=== PATIENT | female | born 1965 | race Caucasian/White ===

== ENCOUNTER 2016-12-24 11:45 | Observation (INO) | payer SELFPAY ==
[~2016-12-24] VITALS: Ht 154.9 cm; Wt 65.0 kg
[2016-12-24] VITALS (8 sets, daily range): BP systolic 121–146; BP diastolic 60–80; PULSE 64–94; RESP 18; TEMP 97.7–98.7; O2SAT 97–99
[~2016-12-24 11:45] MED LIST: 1-ME1LIQ PO; ASPI81 PO; ATOR80TA41 PO; BACT800T5 PO; CARV3.125 PO; CLIN1CAP5 PO; NITR0.4S SL; PLAV75TA PO; TRAM50 PO
[2016-12-24] MEDS ORDERED: NITR0.4S SL (11:57)
[2016-12-24] MEDS ORDERED: LIPI80TA PO (11:57)
[2016-12-24] MEDS ORDERED: ASPI81CH CHEW (11:57)
[2016-12-24] MEDS ORDERED: CARV3.125 PO (11:57)
[2016-12-24] MEDS ORDERED: PLAV75TA29 PO (11:57)
[2016-12-24] MEDS ORDERED: SODIUM CHLORIDE 0.9% FLUSH 10 ML FLUSH IVF PRN (12:00)
[2016-12-24] MEDS ORDERED: ASPIRIN 81 MG CHEW TAB PO ONE (12:00)
[2016-12-24 12:22] LABS: AUTOMATED NEUTROPHIL # 11.4 TH/MM3 (1.8-7.7); BASOPHIL # 0.1 TH/MM3 (0-0.2); BASOPHIL % 0.4 % (0.0-2.0); EOSINOPHIL % 0.3 % (0.0-4.0); HEMATOCRIT 46.6 % (35.0-46.0); HEMO FLAGS DIFF FINAL; LYMPH % 26.1 % (9.0-44.0); LYMPHOCYTE # 4.4 TH/MM3 (1.0-4.8); MEAN CELL VOLUME 89.4 FL (80.0-100.0); MEAN CORPUSCULAR HGB CONC 34.7 % (32.0-36.0); MONO % 5.5 % (0.0-8.0); NEUT % 67.7 % (16.0-70.0); PLATELET COUNT 265 TH/MM3 (150-450); RED BLOOD COUNT 5.21 MIL/MM3 (4.00-5.30); RED CELL DISTRIBUTION WIDTH 17.1 % (11.6-17.2); WHITE BLOOD COUNT 16.8 TH/MM3 (4.0-11.0)
[2016-12-24] MEDS: NITROGLYCERIN 0.4 MG SL 25 TABS/BTL SL SCH ×3 (12:26→12:56)
[2016-12-24 12:34] LABS: PROTHROMBIN TIME - PATIENT 11.4 SEC (9.8-11.6)
[2016-12-24 12:47] LABS: ALKALINE PHOSPHATASE 28 U/L (45-117); CREATINE KINASE 192 U/L (26-192); TOTAL BILIRUBIN ADULT 0.7 MG/DL (0.2-1.0)
--- NOTE | 2016-12-24 12:47 | RADRPT ---
EXAM DATE/TIME: 12/24/2016 12:08 [facility] COMPARISON: No previous studies available for comparison. INDICATIONS : Chest Pain MEDICAL HISTORY : Myocardial infarction. Hypertension Asthma, palpitations SURGICAL HISTORY : Coronary artery stent. ENCOUNTER: Initial ACUITY: 1 day PAIN SCORE: 8/10 LOCATION: Bilateral chest FINDINGS: A single view of the chest demonstrates the lungs to be symmetrically aerated without evidence of mas s, infiltrate or effusion. The cardiomediastinal contours are unremarkable. Osseous structures are intact. CONCLUSION: No acute disease. Satish Kirkpatrick MD on December 24, 2016 at 12:45 Board Certified Radiologist. This report was verified electronically.
[2016-12-24 12:57] LABS: ALT (GPT) 28 U/L (10-53); ANION GAP 15 MEQ/L (5-15); AST (GOT) 21 U/L (15-37); BLOOD UREA NITROGEN 14 MG/DL (7-18); CHLORIDE 105 MEQ/L (98-107); GLOMERULAR FILTRATION RATE 65 ML/MIN (>89); MAGNESIUM 1.9 MG/DL (1.5-2.5); POTASSIUM 3.6 MEQ/L (3.5-5.1); SODIUM (NA) 140 MEQ/L (136-145)
--- NOTE | 2016-12-24 13:13 | PD ---
HPI Chief Complaint: Chest Pain Time Seen by Provider: 11:49 Travel History International Travel<30 days: No Contact w/Intl Traveler<30days: No Traveled to known affect area: No History of Present Illness HPI Patient's 51-year-old female with a history of stents placed the LAD in July of this year presents emergency department for evaluation of chest pain tightness in the middle of her chest without radiation, it was shortness of breath. Patient states been going on for the past 2 hours prior to presentation. She is a smoker high blood pressure high cholesterol but no diabetes. States the pain is been constant ever since onset and fairly severe. PFSH Past Medical History Asthma: Yes Autoimmune Disease: No Bipolar Disorder: Yes Anxiety: Yes Depression: Yes Heart Rhythm Problems: Yes (palpatations) Cancer: Yes (pre-cancer cervical cell abnormality) Cardiac Catheterization: Yes Cardiovascular Problems: Yes (HX OF [place] ) High Cholesterol: Yes Chemotherapy: No Chest Pain: Yes Congestive Heart Failure: No COPD: No Coronary Artery Disease: Yes Diabetes: No Diminished Hearing: No Endocrine: No Gastrointestinal Disorders: Yes GERD: Yes Genitourinary: Yes Hiatal Hernia: Yes Hypertension: Yes Immune Disorder: No Implanted Vascular Access Dvce: No Kidney Stones: No Musculoskeletal: No Neurologic: No Psychiatric: Yes (manic depressive and bipolar disorder) Reproductive: No Respiratory: Yes Radiation Therapy: No Renal Failure: No Sickle Cell Disease: No Sleep Apnea: No Thyroid Disease: No Ulcer: No ?: Not Menopausal: Yes : 4 Para: 4 Tubal Ligation: Yes Past Surgical History Abdominal Surgery: No AICD: No Arteriovenous Shunt: No Cardiac Surgery: No Coronary Stent: Yes Ear Surgery: No Endocrine Surgery: No Eye Surgery: No Genitourinary Surgery: No Gynecologic Surgery: Yes ( ) Hysterectomy: Yes (PARTIAL) Insulin Pump: No Joint Replacement: No Oral Surgery: Yes (extractions) Pacemaker: No Thoracic Surgery: No Other Surgery: Yes (lap & tubal ligation ) Social History Alcohol Use: Yes (TWICE A MONTH) Tobacco Use: Yes (1.5 PPD) Substance Use: Yes (marajuana ON OCC) Allergies-Medications (Allergen,Severity, Reaction): Coded Allergies: Codeine (Verified Allergy, Severe, 12/24/16) Penicillin (Verified Allergy, Severe, 12/24/16) *MDRO Multi-Drug Resistant Organism (Verified Adverse Reaction, Unknown, ) MRSA Buttock Wound 02/2016 Reported Meds & Prescriptions Reported Meds & Active Scripts Active Reported Prozac (Fluoxetine HCl) 40 Mg Cap 40 Mg PO DAILY Lisinopril 20 Mg Tab 20 Mg PO DAILY Nitrostat SL (Nitroglycerin) 0.4 Mg Subl 0.4 Mg SL DIRECTED PRN 1 tablet under the tongue as needed for chest pain. Repeat every 5 minutes for a total of 3 DOSES or call 911 if NO relief. Plavix (Clopidogrel Bisulfate) 75 Mg Tab 75 Mg PO DAILY Coreg (Carvedilol) 3.125 Mg Tab 3.125 Mg PO BID Lipitor (Atorvastatin Calcium) 80 Mg Tab 80 Mg PO HS Aspirin 81 Mg Chew 81 Mg CHEW DAILY Review of Systems Except as stated in HPI: all other systems reviewed are Neg Physical Exam Narrative GENERAL: Well-developed well-nourished appears quite uncomfortable. SKIN: Focused skin assessment warm/dry. HEAD: Atraumatic. Normocephalic. EYES: Pupils equal and round. No scleral icterus. No injection or drainage. ENT: No nasal bleeding or discharge. Mucous membranes pink and moist. NECK: Trachea midline. No JVD. CARDIOVASCULAR: Regular rate and rhythm. No murmur appreciated. 2+ bilaterally equal pulses in all 4 extremity's. RESPIRATORY: No accessory muscle use. Clear to auscultation. Breath sounds equal bilaterally. GASTROINTESTINAL: Abdomen soft, non-tender, nondistended. Hepatic and splenic margins not palpable. MUSCULOSKELETAL: No obvious deformities. No clubbing. No cyanosis. No edema. NEUROLOGICAL: Awake and alert. No obvious cranial nerve deficits. Motor grossly within normal limits. Normal speech. PSYCHIATRIC: Appropriate mood and affect; insight and judgment normal. Data Data Last Documented VS Vital Signs Date Time Temp Pulse Resp B/P Pulse Ox O2 Delivery O2 Flow Rate FiO2 12/24/16 13:00 70 18 136/80 98 Nasal Cannula 2 12/24/16 11:46 98.0 Orders Electrocardiogram (12/24/16 11:52) Ckmb (Isoenzyme) Profile (12/24/16 11:52) Complete Blood Count With Diff (12/24/16 11:52) Comprehensive Metabolic Panel (12/24/16 11:52) D-Dimer (12/24/16 11:52) Magnesium (Mg) (12/24/16 11:52) Prothrombin Time / Inr (Pt) (12/24/16 11:52) Act Partial Throm Time (Ptt) (12/24/16 11:52) Troponin I (12/24/16 11:52) Chest, Single Ap (12/24/16 11:52) Ecg Monitoring (12/24/16 11:52) Iv Access Insert/Monitor (12/24/16 11:52) Oximetry (12/24/16 11:52) Oxygen Administration (12/24/16 11:52) Aspirin Chew (Aspirin Chew) (12/24/16 12:00) Sodium Chloride 0.9% Flush (Ns Flush) (12/24/16 12:00) Nitroglycerin Sl (Nitrostat Sl) (12/24/16 12:00) CKMB (12/24/16 12:00) CKMB% (12/24/16 12:00) Admit Order (Ed Use Only) (12/24/16 ) Labs Laboratory Tests Test 12/24/16 12:00 White Blood Count 16.8 TH/MM3 Red Blood Count 5.21 MIL/MM3 Hemoglobin 16.2 GM/DL Hematocrit 46.6 % Mean Corpuscular Volume 89.4 FL Mean Corpuscular Hemoglobin 31.0 PG Mean Corpuscular Hemoglobin 34.7 % Concent Red Cell Distribution Width 17.1 % Platelet Count 265 TH/MM3 Mean Platelet Volume 8.3 FL Neutrophils (%) (Auto) 67.7 % Lymphocytes (%) (Auto) 26.1 % Monocytes (%) (Auto) 5.5 % Eosinophils (%) (Auto) 0.3 % Basophils (%) (Auto) 0.4 % Neutrophils # (Auto) 11.4 TH/MM3 Lymphocytes # (Auto) 4.4 TH/MM3 Monocytes # (Auto) 0.9 TH/MM3 Eosinophils # (Auto) 0.0 TH/MM3 Basophils # (Auto) 0.1 TH/MM3 CBC Comment DIFF FINAL Differential Comment Prothrombin Time 11.4 SEC Prothromb Time International 1.0 RATIO Ratio Activated Partial 30.0 SEC Thromboplast Time D-Dimer Quantitative (PE/DVT) 0.25 MG/L FEU Sodium Level 140 MEQ/L Potassium Level 3.6 MEQ/L Chloride Level 105 MEQ/L Carbon Dioxide Level 20.0 MEQ/L Anion Gap 15 MEQ/L Blood Urea Nitrogen 14 MG/DL Creatinine 0.92 MG/DL Estimat Glomerular Filtration 65 ML/MIN Rate Random Glucose 135 MG/DL Calcium Level 9.9 MG/DL Magnesium Level 1.9 MG/DL Total Bilirubin 0.7 MG/DL Aspartate Amino Transf 21 U/L (AST/SGOT) Alanine Aminotransferase 28 U/L (ALT/SGPT) Alkaline Phosphatase 28 U/L Total Creatine Kinase 192 U/L Creatine Kinase MB 1.0 NG/ML Troponin I LESS THAN 0.02 NG/ML Total Protein 8.5 GM/DL Albumin 4.1 GM/DL MDM Medical Decision Making Medical Screen Exam Complete: Yes Emergency Medical Condition: Yes Interpretation(s) EKG shows normal sinus rhythm normal axis normal R-wave progression. No concerning ST segment changes. Intervals within normal limits. This is normal EKG. Differential Diagnosis He has, [place], and STEMI, STEMI, PE. Narrative Course Patient was remitted emerged permit, given aspirin and nitroglycerin, the latter relieved her pain significantly. Patient initial troponin negative, chest x-ray negative, d-dimer negative. Discussed the patient chest pain observation and she is agreeable. She is followed by Dr. Cohn. Diagnosis Primary Impression: Chest pain Admitting Information Admitting Physician Requests: Observation Condition: Stable Trevin Perez MD Dec 24, 2016 13:13
[2016-12-24] MEDS ORDERED: NITROGLYCERIN 0.4 MG SL 25 TABS/BTL SL PRN (14:00)
[2016-12-24] MEDS ORDERED: ACETAMINOPHEN 500 MG CPLT PO PRN (14:00)
[2016-12-24] MEDS ORDERED: ONDANSETRON HCL 4 MG/2 ML VIAL IV PRN (14:00)
--- NOTE | 2016-12-24 14:39 | HHI.HP ---
HPI Primary Care Physician Paty Ventura MD Chief Complaint Chest pain History of Present Illness 51-year-old female with history of coronary artery disease including one stent, hypertension, and current smoker presents to the emergency room for further evaluation of chest pain. Onset 11 AM. Location substernal with radiation to left inframammary and left side midback. Characterized as a heavy pressure. Pain in back described as stabbing. Associated symptoms included shortness of breath, nausea, diaphoresis. Hurt to take a deep breath. Also reports her whole body was tingling including fingers, toes, and lips. Precipitating factors situational stress. States this weekend her filed for divorce. Relieving factors she relates to nitroglycerin, stating after 2 doses most of pain subsided. Currently has mild substernal chest pressure. Endorses all day yesterday she experienced indigestion. Symptoms with first AK included acid reflux and right anterior chest pain. Review of Systems General: No fatigue,weakness, fever, chills, recent illness. Other events current situational stress a chief been her general state of health. HEENT: No SCHERER, no vision changes, no dysphasia CV: As stated above. Currently has nonradiating, mild chest pressure substernally. No intermittent leg pain. Reports a physical job with daily activity at which she never develops chest discomfort. Never needed to take nitroglycerin sublingual when necessary RESP: No SOB, cough, wheeze, recent URI, or history of asthma. Current smoker, stating "I smoked a lot more than I normally do." GI: No nausea, vomiting, bowel changes, diarrhea, constipation, pain, distention , melena, or blood in the stool. : No dysuria, urgency, frequency, history of frequent UTIs, or history of kidney stones EXT: No lower leg edema, no paraesthesias. MS: No discomfort or change in ROM. NEURO: No difficulty with balance, LOC, motor/sensory deficits PSYCH: Reports situational stress are green with her . 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 History of bipolar disorder , anxiety and depression. SKIN: No rashes, no concerning lesions Past Family Social History Allergies: Coded Allergies: Codeine (Verified Allergy, Severe, 12/24/16) Penicillin (Verified Allergy, Severe, 12/24/16) *MDRO Multi-Drug Resistant Organism (Verified Adverse Reaction, Unknown, ) MRSA Buttock Wound 02/2016 Past Medical History CAD, hypertension, hyperlipidemia, bipolar disorder Past Surgical History Partial hysterectomy, tubal ligation Reported Medications Active Reported Nitrostat SL (Nitroglycerin) 0.4 Mg Subl 0.4 Mg SL DIRECTED PRN 1 tablet under the tongue as needed for chest pain. Repeat every 5 minutes for a total of 3 DOSES or call 911 if NO relief. Plavix (Clopidogrel Bisulfate) 75 Mg Tab 75 Mg PO DAILY Coreg (Carvedilol) 3.125 Mg Tab 3.125 Mg PO BID Lipitor (Atorvastatin Calcium) 80 Mg Tab 80 Mg PO HS Aspirin 81 Mg Chew 81 Mg CHEW DAILY Prozac daily Active Ordered Medications Current Medications Medications (Trade) Dose Ordered Sig/Jaimie Route Start Time Stop Time Status Last Admin (NS Flush) 2 ml UNSCH PRN IVF 12/24/16 12:00 (NS Flush) 2 ml BID IV FLUSH 12/24/16 21:00 (Tylenol) 500 mg Q4H PRN PO 12/24/16 14:00 (Zofran Inj) 4 mg Q6H PRN IV 12/24/16 14:00 (Nitrostat Sl) 0.4 mg Q5M PRN SL 12/24/16 14:00 (Aspirin) 325 mg DAILY PO 12/25/16 09:00 Family History Father CABG 3 age 55. Mother pacemaker age 70. Brother and sister both have hypertension. Social History Known coronary artery disease, hypertension, and hyperlipidemia. No known diabetes. Smokes 1/2 pack/daily. Denies any alcohol or illegal drug use. Currently . 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 Past cardiac testing 11/05/2014 Cardiac catheterizationstent placed to LAD. Occluded RCA with left to right collaterals. Preserved LV function. 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 Tanya Cohn. No recent stress testing. Follows with button sewer hand every 6 months, next appointment April 2017. Physical Exam Vital Signs Vital Signs Date Time Temp Pulse Resp B/P Pulse Ox O2 Delivery O2 Flow Rate FiO2 12/24/16 12:00 74 18 99 Nasal Cannula 2 12/24/16 11:58 98 Nasal Cannula 2 12/24/16 11:58 98 Nasal Cannula 2 12/24/16 11:46 98.0 94 18 137/76 98 Physical Exam GENERAL: Alert WN, WD, NAD, pleasant, female who appears older than stated age and smells of tobacco. HEAD: NC, AT EYES: Sclera clear, conjunctiva without injection, pupils equal and round ENT: Mucous membranes pink and moist, no nasal discharge or bleeding NECK: Supple, no masses, trachea midline CV: RRR, without murmur, rub, gallop, no JVD, S1-S2 no S3-S4. No carotid bruits. RESP: Diminished lungs throughout bilateral, no crackles, no wheeze, no rhonchi , symmetrical chest rise, nonlabored, able to speak in full sentences ABD: Soft, NT, ND, no masses, positive bowel tones BACK: No scoliosis EXT: Pulses PT and PP +24, no dependent edema MS: Normal tone 4 extremities, nontender, no obvious deformities, full range of motion NEURO: CN II through CN XII grossly intact, motor strength 5/5, gait WNL PSYCH: A+O 3, pleasant affect, appropriate speech, appropriate mood and affect , insight and judgment SKIN: Normal turgor, normal texture, no lesions, no rashes, even hair distribution, tattoo Laboratory Laboratory Tests Test 12/24/16 12:00 White Blood Count 16.8 Red Blood Count 5.21 Hemoglobin 16.2 Hematocrit 46.6 Mean Corpuscular Volume 89.4 Mean Corpuscular Hemoglobin 31.0 Mean Corpuscular Hemoglobin 34.7 Concent Red Cell Distribution Width 17.1 Platelet Count 265 Mean Platelet Volume 8.3 Neutrophils (%) (Auto) 67.7 Lymphocytes (%) (Auto) 26.1 Monocytes (%) (Auto) 5.5 Eosinophils (%) (Auto) 0.3 Basophils (%) (Auto) 0.4 Neutrophils # (Auto) 11.4 Lymphocytes # (Auto) 4.4 Monocytes # (Auto) 0.9 Eosinophils # (Auto) 0.0 Basophils # (Auto) 0.1 CBC Comment DIFF FINAL Differential Comment Prothrombin Time 11.4 Prothromb Time International 1.0 Ratio Activated Partial 30.0 Thromboplast Time D-Dimer Quantitative (PE/DVT) 0.25 Sodium Level 140 Potassium Level 3.6 Chloride Level 105 Carbon Dioxide Level 20.0 Anion Gap 15 Blood Urea Nitrogen 14 Creatinine 0.92 Estimat Glomerular Filtration 65 Rate Random Glucose 135 Calcium Level 9.9 Magnesium Level 1.9 Total Bilirubin 0.7 Aspartate Amino Transf 21 (AST/SGOT) Alanine Aminotransferase 28 (ALT/SGPT) Alkaline Phosphatase 28 Total Creatine Kinase 192 Creatine Kinase MB 1.0 Troponin I LESS THAN 0.02 Total Protein 8.5 Albumin 4.1 Result Diagram: 12/24/16 1200 12/24/16 1200 Imaging Last Impressions Chest X-Ray 12/24/16 1152 Signed Impressions: Service Date/Time: Sunday, December 24, 2016 12:08 - CONCLUSION: No acute disease. Satish Kirkpatrick MD Course EKG First EKG normal sinus rhythm, normal axis, mild ST depression [id number] Second EKG normal sinus rhythm, normal axis, no st t segment changes. Assessment and Plan Assessment and Plan #1 Chest painadmitted to chest pain center. Ruled out with 3 sets of EKGs, cardiac enzymes, and monitored overnight. Seen and evaluated by Dr. Kostas Rodriguez. If ruled out, plan for lexiscan in am. Patient is agreeable to plan of care. Will notify Dr. Cohn in morning of patients arrival to chest pain unit. #2 History of CADcontinue Coreg, atorvastatin, Plavix, aspirin #3 Depressioncontinue Prozac once updated on electronic medical record, follow- up with PCP and discuss with PCP current increase stress. #4 Tobacco usestrongly encouraged and stressed the importance of tobacco sensation. Discussed and counseled patient to quit smoking. #5 Polycythemia-most likely related to her smoking, encouraged tobacco sensation , follow up with PCP, d-dimer unremarkable. #6 Hypertension-continue to monitor, restart bp medication once medication list updated. Eve Garcia Dec 24, 2016 14:39
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
[2016-12-24 16:16] LABS: CREATINE KINASE 156 U/L (26-192)
[2016-12-24 16:29] LABS: CKMB 0.7 NG/ML (0.5-3.6)
[2016-12-24] MEDS ORDERED: LISI-515 PO (16:44)
[2016-12-24] MEDS ORDERED: PROZ40CA PO (16:45)
[2016-12-24] MEDS: NITROGLYCERIN 2% OINT 1 GM PACKET TOPICAL SCH ×2 (16:46→17:38)
[2016-12-24 18:58] LABS: CREATINE KINASE 154 U/L (26-192)
[2016-12-24 19:10] LABS: CKMB 0.9 NG/ML (0.5-3.6)
[2016-12-24] MEDS ORDERED: ATORVASTATIN 80 MG TAB PO SCH (21:00)
[2016-12-24] MEDS: CARVEDILOL 3.125 MG TAB PO SCH (21:48)
[2016-12-24] MEDS: SODIUM CHLORIDE 0.9% FLUSH 10 ML FLUSH IV FLUSH SCH (21:48)
[2016-12-25] VITALS (7 sets, daily range): BP systolic 111–127; BP diastolic 58–71; PULSE 57–77; RESP 15–17; TEMP 97.3–98.6; O2SAT 96–98
[2016-12-25] MEDS: NITROGLYCERIN 2% OINT 1 GM PACKET TOPICAL SCH ×2 (05:34)
[2016-12-25] MEDS ORDERED: FLUoxetine HCL 20 MG CAP PO SCH (09:00)
[2016-12-25] MEDS ORDERED: ASPIRIN 325 MG TAB PO SCH (09:00)
[2016-12-25] MEDS ORDERED: CLOPIDOGREL 75 MG TAB PO SCH (09:00)
[2016-12-25] MEDS ORDERED: LISINOPRIL 20 MG TAB PO SCH (09:00)
[2016-12-25] MEDS ORDERED: REGADENOSON INJ 0.4 MG/5 ML SYR ONE (09:17)
[2016-12-25] MEDS: SODIUM CHLORIDE 0.9% FLUSH 10 ML FLUSH IV FLUSH SCH (10:17)
[2016-12-25] MEDS: CARVEDILOL 3.125 MG TAB PO SCH (10:18)
--- NOTE | 2016-12-25 10:34 | RADRPT ---
EXAM DATE/TIME: 12/25/2016 08:44 [facility] COMPARISON: No previous studies available for comparison. INDICATIONS : Substernal chest pain radiating to back with dyspnea, diaphoresis and nausea. Angina. Coronary artery disease. DOSE: 27.2 mCi Tc99m Myoview at stress. 8.5 mCi Tc99m Myoview at rest. 0.4 mg Lexiscan STRESS SYMPTOMS: Dyspnea, vomiting, and hot EJECTION FRACTION: 69% MEDICAL HISTORY : Hypertension. Bipolar disorder. SURGICAL HISTORY : Tubal ligation. Hysterectomy. Coronary artery stent. ENCOUNTER: Initial ACUITY: 2 days PAIN SCALE: 7/10 LOCATION: Substernal chest TECHNIQUE: The patient underwent pharmacologic stress with infusion of prescribed dose. Continuous ECG tracing was monitored during stress. Gated SPECT imaging was performed after stress and conventional SPECT i maging was performed at rest. The examination was performed on a SPECT/CT scanner, both attenuation and non-corrected datasets were reviewed. FINDINGS: DISTRIBUTION: The maximum perfused segment at stress is in the inferior wall. PERFUSION STUDY: The pattern of perfusion at stress is within normal limits. GATED STUDY: There is intact wall motion and thickening without hypokinetic or dyskinetic segments. CONCLUSION: 1. No focal reversible perfusion defect. 2. No focal wall motion abnormality with EF of 69%. RISK CATEGORY: Low (<1% Annual Mortality Rate) Tony Stephenson MD on December 25, 2016 at 10:28 Board Certified Radiologist. This report was verified electronically.
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
--- NOTE | 2016-12-25 14:23 | EKG ---
Date Performed: 12/24/2016 Time Performed: 18:24:34 PTAGE: 51 years EKG: SINUS BRADYCARDIA WITH SINUS ARRHYTHMIA BORDERLINE ECG PREVIOUS TRACING : 12/24/2016 15.16 Since previous tracing, no significant change noted DOCTOR: Donta Coleman Interpretating Date/Time 12/25/2016 14:22:12
--- NOTE | 2016-12-25 14:24 | EKG ---
Date Performed: 12/24/2016 Time Performed: 15:16:05 PTAGE: 51 years EKG: Sinus rhythm NORMAL ECG PREVIOUS TRACING : 12/24/2016 11.46 Since previous tracing, no significant change noted DOCTOR: Donta Coleman Interpretating Date/Time 12/25/2016 14:22:22
--- NOTE | 2016-12-25 14:24 | EKG ---
Date Performed: 12/24/2016 Time Performed: 11:46:59 PTAGE: 51 years EKG: Sinus rhythm MODERATE ST DEPRESSION ABNORMAL ECG PREVIOUS TRACING : 11/05/2014 05.00 Since previous tracing,ST changes are more prominent DOCTOR: Donta Coleman Interpretating Date/Time 12/25/2016 14:22:51
--- NOTE | 2016-12-25 14:25 | TR ---
Date Performed: 12/25/2016 Time Performed: 09:21:10 DOCTOR: Donta Coleman DRUG LIST: CLINICAL HISTORY: REASON FOR TEST: Angina REASON FOR ENDING: OBSERVATION: CONCLUSION: Lexiscan stress test was performed under standard four minute protocol. Radionuclid e was injected one minute prior to ending the test. No electrocardiographic abormalities were present to suggest ischemia. Nuclear imaging and interpretation are pending. COMMENTS:
== END 2016-12-25 11:59 | disposition home or self-care (01) ==
LOC: NEPE 11:45 → NEDA 13:18 → NEPFCDU 15:50
PROVIDERS: ADMIT Internal Medicine Interventional Cardiology; ATTEND Internal Medicine Interventional Cardiology
DX: R07.89 Other chest pain (principal); R00.1 Bradycardia, unspecified; I49.8 Other specified cardiac arrhythmias; R94.31 Abnormal electrocardiogram [ECG] [EKG]; R11.2 Nausea with vomiting, unspecified; R61 Generalized hyperhidrosis; R06.00 Dyspnea, unspecified; D75.1 Secondary polycythemia; M54.9 Dorsalgia, unspecified; R20.2 Paresthesia of skin; K30 Functional dyspepsia; I25.119 Atherosclerotic heart disease of native coronary artery with unspecified angina pectoris; I10 Essential (primary) hypertension; E78.5 Hyperlipidemia, unspecified; E78.00 Pure hypercholesterolemia, unspecified; I25.2 Old myocardial infarction; J45.909 Unspecified asthma, uncomplicated; K21.9 Gastro-esophageal reflux disease without esophagitis; F41.9 Anxiety disorder, unspecified; F31.9 Bipolar disorder, unspecified; Z95.5 Presence of coronary angioplasty implant and graft; F17.200 Nicotine dependence, unspecified, uncomplicated; Z79.899 Other long term (current) drug therapy; Z79.82 Long term (current) use of aspirin; Z79.02 Long term (current) use of antithrombotics/antiplatelets
CPT/HCPCS: 71010; 78452; 80053; 82550; 82552; 83735; 84484; 85025; 85379; 85610; 85730; 93005; 93017; 99285; A9502; G0378; J2785

== ENCOUNTER 2018-06-13 11:50 | Inpatient (IN) ==
[2018-06-13] MEDS ORDERED: Propofol Inj 500 MG/50 ML Vial ONE ×2 (11:53→11:59)
[2018-06-13] MEDS: Propofol 1000 mg/100 ml Inj 1,000 MG/100 ML BOTTLE IV.CONT PRN ×3 (12:20→22:35)
[2018-06-13 12:33] LABS: Baso # (Auto) 0.1 th/mm3 (0.0-0.2); Baso % (Auto) 0.6 % (0.0-2.0); Eos # (Auto) 0.1 th/mm3 (0.0-0.4); Hematocrit 45.5 % (35.0-46.0); Hemoglobin 15.7 gm/dL (11.6-15.3); Lymph # (Auto) 5.7 th/mm3 (1.0-4.8); Lymph % (Auto) 42.3 % (9.0-44.0); Mean Corpuscular HGB Conc 34.6 % (32.0-36.0); Mean Corpuscular Hemoglobin 32.9 pg (27.0-34.0); Mean Corpuscular Volume 95.3 fL (80.0-100.0); Mean Platelet Volume 7.7 fL (7.0-11.0); Mono # (Auto) 0.9 th/mm3 (0.0-0.9); Mono % (Auto) 6.7 % (0.0-8.0); Neut # (Auto) 6.6 th/mm3 (1.8-7.7); Neut % (Auto) 49.4 % (16.0-70.0); Platelet Count 280 th/mm3 (150-450); Red Blood Count 4.77 mil/mm3 (4.00-5.30); White Blood Count 13.4 th/mm3 (4.0-11.0)
[2018-06-13 12:42] LABS: ABG Base Excess -3.7 mmol/L (-2-2); ABG PCO2 79 mmHg (38-42); ABG PO2 187 mmHg (61-120)
[2018-06-13 12:42] LABS: Bilirubin,Urine Negative (Negative); Clarity,Urine Cloudy (Clear); Color,Urine Yellow (Yellw/Straw); Glucose,Urine (UA) 50 mg/dL (Negative); Leukocyte Esterase,Urine Negative (Negative); Nitrite,Urine Negative (Negative); Specific Gravity,Urine 1.014 (1.002-1.035); Squamous Epithelial Cell,Urine 2 /hpf (0-5)
[2018-06-13 12:59] LABS: Amphetamine Screen,Urine Neg (Neg); Barbiturate Screen,Urine Neg (Neg); Cannabinoid Screen,Urine Pos (Neg); Cocaine Screen,Urine Neg (Neg)
--- NOTE | 2018-06-13 13:01 | XR ---
EXAM DATE: 06/13/2018 12:58 PM EST AGE/SEX: 52 years / Female INDICATIONS: Respiratory failure. CLINICAL DATA: This is the patient's initial encounter. Patient reports that signs and symptoms have been present for 1 day and indicates a pain score of Nonresponsive. MEDICAL/SURGICAL HISTORY: Non-responsive. Non-responsive. [place] [facility] [place]. . FINDINGS: ETT approximately 2.5 cm above the shanna. NGT in the stomach. Mild interstitial prominence without s ignificant new focal pleural or parenchymal opacities. Cardiomediastinal contours are within normal l imits. Bony thorax is intact. CONCLUSION: 1. ETT and NGT in good position. 2. Mild interstitial edema. Electronically signed by: Tony Stephenson MD Board Certified Radiologist 06/13/2018 12:59 PM EST
[2018-06-13 13:03] LABS: Alanine Aminotransferase 39 U/L (10-53); Alkaline Phosphatase 31 U/L (45-117); Total Protein 7.2 g/dL (6.4-8.2)
[2018-06-13 13:04] LABS: Albumin 3.3 g/dL (3.4-5.0); Anion Gap 9 meq/L (5-15); Aspartate Aminotransferase 29 U/L (15-37); Blood Urea Nitrogen 10 mg/dL (7-18); Carbon Dioxide 23.5 meq/L (21.0-32.0); Chloride 109 meq/L (98-107); Glomerular Filtration Rate 65 mL/min (>89); Glucose,Random 126 mg/dL (74-106); Magnesium 2.1 mg/dL (1.5-2.5); Potassium 3.9 meq/L (3.5-5.1); Sodium 141 meq/L (136-145)
[2018-06-13 13:07] LABS: Eosinophils 1 % (0-4); Lymphocytes 41 % (9-44); Monocytes 4 % (0-8); Platelet Estimate Normal (Normal); Platelet Morphology Normal (Normal)
[2018-06-13 13:08] LABS: Opiate Screen,Urine Neg (Neg)
[2018-06-13 13:09] LABS: Alcohol 79 mg/dL (0-5)
--- NOTE | 2018-06-13 13:10 | ED ---
HPI General Chief complaint: Overdose Stated complaint: Emergent/OD Time Seen by Provider: 06/13/18 12:00 Source: EMS and RN notes reviewed Mode of arrival: EMS Limitations: altered mental status History of Present Illness HPI narrative: 52yF brought in by EMS for suspected overdose. The patient was reportedly found unresponsive by family, somnolent and not protecting airway, required intubation by EMS prior to arrival. She had copious emesis noted in her airway during intubation. EMS found bottles of prozac, omeprazole, carvedilol, Joseph Ryan, and marijuana with paraphernalia next to the patient. It is unclear if this was an intentional overdose attempt. The patient arrived intubated and there are no friends or family members present to provide collateral information. Related Data Home Medications Medication Instructions Recorded Confirmed Unable to Obtain Home Meds 06/13/18 06/13/18 Allergies Allergy/AdvReac Type Severity Reaction Status Date / Time codeine Allergy Severe Unverified 01/24/17 00:55 penicillin G Allergy Severe Unverified 01/24/17 00:55 *MDRO Multi-Drug Resistant AdvReac Unknown Uncoded 12/24/16 11:52 Organism Review of Systems ROS Unobtainable ROS Unobtainable: unobtainable due to endotracheal tube PMFSH Medical History Medical History Bipolar disorder (Acute) Coronary artery disease (Acute) Depression (Acute) Essential hypertension (Acute) H/O gastroesophageal reflux (GERD) (Acute) Hyperlipidemia (Acute) Surgical History Surgical History History of partial hysterectomy (Acute) History of tubal ligation (Acute) Family History Family History Father Family history of CABG Mother Family history of pacemaker Social History Social History Smoking Status: Unknown if ever smoked How Often Do You Have a Drink Containing Alcohol: Unable to Obtain Recent Travel in [place] within the Last 8 Weeks: No Recent Out of Country Travel within the Last 8 Weeks: No Immunization History Tetanus Immunization: Unable to Assess Exam Const General: ill appearing Other: Intubated, copious emesis noted on/ around patient HENMT Other: No obvious head or facial trauma Eyes Other: Pupils 2 mm and sluggishly reactive bilaterally Mild chemosis Neck Other: Trachea midline Chest Chest: normal inspection of the chest Resp Other: Copious thick mercado secretions noted initially from ETT, large amount of particulate matter suctioned from nares and oropharynx 7-5 ETT secured at 24 cm at the teeth Coarse bilateral breath sounds present Cardio Rate: tachycardic Rhythm: regular rhythm GI Inspection: non-distended Palpation: soft Skin General: no rashes or lesions noted Neuro Other: GCS 6T ([id number]), RASS 0 on arrival, now -1 on sedation Course Initial Documented Vital Signs Pulse Rate 99 H 06/13/18 11:52 Respiratory Rate 17 06/13/18 11:52 Blood Pressure 221/105 H 06/13/18 11:52 Pulse Oximetry 97 06/13/18 11:52 Last Documented Vital Signs Temperature 98.6 F 06/13/18 12:03 Pulse Rate 108 H 06/13/18 13:46 Respiratory Rate 18 06/13/18 13:46 Blood Pressure 170/102 H 06/13/18 13:46 Pulse Oximetry 100 06/13/18 13:47 Critical Care Time Critical Care Time: Yes Total Critical Care Time: 45 Attestation: Counseling/ Coordination of Care: This patient is critically ill with impairment of one or more vital organ systems with a high probability of imminent or life-threatening deterioration. High-complexity medical decision making was required to support vital organ function and/ or prevent deterioration in the patient's condition. Total critical care time spent is 45 minutes giving full attention to this patient. This includes examining the patient, gathering history from someone other than the patient (i.e. EMS), discussing the patient's care with other providers, managing the patient's blood pressure and ventilator settings, ordering and interpreting radiologic studies, ordering and interpreting laboratory values, managing the patient's sedation requirements, re-evaluation at frequent intervals, and documentation. Amount of time is separate from teaching, counseling the patient and/or family, and exclusive of procedures. Medical Decision Making MDM Narrative Medical decision making narrative: Assessment: 52yF presenting with suspected overdose, acute toxic encephalopathy, aspiration , acute hypoxic respiratory failure requiring mechanical ventilation Plan: ETT placement confirmed on arrival with capnometry and bilateral breath sounds ABG on arrival 7.12/78/187/25/-3.7, rate increased to 18 CXR shows ETT in adequate position, interstitial edema (L>R) concerning for acute aspiration pneumonitis Emergent bronchoscopy performed on arrival for pulmonary toilet in the setting of massive aspiration event, no significant particulate matter noted but moderate amt of thin secretions were found in RUL Sedation/ mechanical ventilation Labs, including ASA/ APAP/ EtOH/ urine drug UA, UCG CT Patient had a Dyson Act filed by police for suspected intentional overdose Patient requires ICU level of care-- case discussed with Dr. Cotton Medical Screen Exam Complete: Yes Emergency Medical Condition: Yes Differential Diagnosis Differential Diagnosis: Differential diagnosis includes, but is not limited to: overdose, intoxication/ withdrawal, aspiration, pneumonia, ICH Lab Data Lab results reviewed: Yes I reviewed the patient's lab results. Result diagrams: 06/13/18 12:00 06/13/18 12:00 POC Results POC Urine Results Negative Lab Results 06/13/18 06/13/18 06/13/18 Range/Units 12:00 12:00 12:00 WBC 13.4 H (4.0-11.0) th/mm3 RBC 4.77 (4.00-5.30) mil/mm3 Hgb 15.7 H (11.6-15.3) gm/dL Hct 45.5 (35.0-46.0) % MCV 95.3 (80.0-100.0) fL MCH 32.9 (27.0-34.0) pg MCHC 34.6 (32.0-36.0) % RDW 14.0 (11.6-17.2) % Plt Count 280 (150-450) th/mm3 MPV 7.7 (7.0-11.0) fL Prelim Diff (Auto) Slide review pending Neut % (Auto) 49.4 (16.0-70.0) % Lymph % (Auto) 42.3 (9.0-44.0) % Wayne % (Auto) 6.7 (0.0-8.0) % Eos % (Auto) 1.0 (0.0-4.0) % Baso % (Auto) 0.6 (0.0-2.0) % Neut # (Auto) 6.6 (1.8-7.7) th/mm3 Lymph # (Auto) 5.7 H (1.0-4.8) th/mm3 Wayne # (Auto) 0.9 (0.0-0.9) th/mm3 Eos # (Auto) 0.1 (0.0-0.4) th/mm3 Baso # (Auto) 0.1 (0.0-0.2) th/mm3 WBC Differential Manual diff final Seg Neuts % (Manual) 54 (16-70) % Lymphocytes % (Manual) 41 (9-44) % Monocytes % (Manual) 4 (0-8) % Eosinophils % (Manual) 1 (0-4) % Abs Neuts (Manual) 7.2 (1.8-7.7) th/mm3 Differential Comment . Platelet Estimate Normal (Normal) Platelet Morphology Normal (Normal) Puncture Site Patient Temperature O2 Saturation (90-100) % ABG pH (7.380-7.420) ABG pCO2 (38-42) mmHg ABG pO2 (61-120) mmHg ABG HCO3 (22-26) mmol/L ABG O2 Content (12.0-20.0) Vol % ABG Base Excess (-2-2) mmol/L ABG Methemoglobin (0-2) % Jaime Test Hemoglobin (12.0-16.0) G/DL Carboxyhemoglobin (0-4) % O2 Delivery Device Vent Setting Inspired O2 % Critical Value Sodium 141 (136-145) meq/L Potassium 3.9 (3.5-5.1) meq/L Chloride 109 H (98-107) meq/L Carbon Dioxide 23.5 (21.0-32.0) meq/L Anion Gap 9 (5-15) meq/L BUN 10 (7-18) mg/dL Creatinine 0.91 (0.50-1.00) mg/dL Estimated GFR 65 L (>89) mL/min Random Glucose 126 H (74-106) mg/dL Calcium 8.0 L (8.5-10.1) mg/dL Phosphorus (2.5-4.9) mg/dL Magnesium 2.1 (1.5-2.5) mg/dL Total Bilirubin 0.3 (0.2-1.0) mg/dL AST 29 (15-37) U/L ALT 39 (10-53) U/L Alkaline Phosphatase 31 L (45-117) U/L Ammonia 29 (11-32) mcmol/L Troponin I Less than 0.02 L (0.02-0.05) ng/mL Total Protein 7.2 (6.4-8.2) g/dL Albumin 3.3 L (3.4-5.0) g/dL TSH 1.630 (0.358-3.740) uIU/mL Urine Color (Yellw/Straw) Urine Clarity (Clear) Urine pH (5.0-8.5) Ur Specific [place] (1.002-1.035) Urine Protein (Neg-Trace) mg/dL Urine Glucose (UA) (Negative) mg/dL Urine Ketones (Negative) mg/dL Urine Occult Blood (Negative) Urine Nitrate (Negative) Urine Bilirubin (Negative) Urine Urobilinogen (Less than 2) mg/dL Ur Leukocyte Esterase (Negative) Urine RBC (0-3) /hpf Urine WBC (0-5) /hpf Ur Squamous Epith Cells (0-5) /hpf Micro UA Comment Ur Microscopic Review Urine Culture Comments Salicylates (2.8-20.0) mg/dL Urine Opiates Screen (Neg) Acetaminophen Less than 2.0 L (10.0-30.0) mcg/mL Ur Barbiturates Screen (Neg) Ur Amphetamines Screen (Neg) U Benzodiazepines Scrn (Neg) Urine Cocaine Screen (Neg) U Cannabinoids Screen (Neg) Serum Alcohol 79 H (0-5) mg/dL 06/13/18 06/13/18 06/13/18 Range/Units 12:00 12:00 12:05 WBC (4.0-11.0) th/mm3 RBC (4.00-5.30) mil/mm3 Hgb (11.6-15.3) gm/dL Hct (35.0-46.0) % MCV (80.0-100.0) fL MCH (27.0-34.0) pg MCHC (32.0-36.0) % RDW (11.6-17.2) % Plt Count (150-450) th/mm3 MPV (7.0-11.0) fL Prelim Diff (Auto) Neut % (Auto) (16.0-70.0) % Lymph % (Auto) (9.0-44.0) % Wayne % (Auto) (0.0-8.0) % Eos % (Auto) (0.0-4.0) % Baso % (Auto) (0.0-2.0) % Neut # (Auto) (1.8-7.7) th/mm3 Lymph # (Auto) (1.0-4.8) th/mm3 Wayne # (Auto) (0.0-0.9) th/mm3 Eos # (Auto) (0.0-0.4) th/mm3 Baso # (Auto) (0.0-0.2) th/mm3 WBC Differential Seg Neuts % (Manual) (16-70) % Lymphocytes % (Manual) (9-44) % Monocytes % (Manual) (0-8) % Eosinophils % (Manual) (0-4) % Abs Neuts (Manual) (1.8-7.7) th/mm3 Differential Comment Platelet Estimate (Normal) Platelet Morphology (Normal) Puncture Site Patient Temperature O2 Saturation (90-100) % ABG pH (7.380-7.420) ABG pCO2 (38-42) mmHg ABG pO2 (61-120) mmHg ABG HCO3 (22-26) mmol/L ABG O2 Content (12.0-20.0) Vol % ABG Base Excess (-2-2) mmol/L ABG Methemoglobin (0-2) % Jaime Test Hemoglobin (12.0-16.0) G/DL Carboxyhemoglobin (0-4) % O2 Delivery Device Vent Setting Inspired O2 % Critical Value Sodium (136-145) meq/L Potassium (3.5-5.1) meq/L Chloride (98-107) meq/L Carbon Dioxide (21.0-32.0) meq/L Anion Gap (5-15) meq/L BUN (7-18) mg/dL Creatinine (0.50-1.00) mg/dL Estimated GFR (>89) mL/min Random Glucose (74-106) mg/dL Calcium (8.5-10.1) mg/dL Phosphorus 4.3 (2.5-4.9) mg/dL Magnesium (1.5-2.5) mg/dL Total Bilirubin (0.2-1.0) mg/dL AST (15-37) U/L ALT (10-53) U/L Alkaline Phosphatase (45-117) U/L Ammonia (11-32) mcmol/L Troponin I (0.02-0.05) ng/mL Total Protein (6.4-8.2) g/dL Albumin (3.4-5.0) g/dL TSH (0.358-3.740) uIU/mL Urine Color (Yellw/Straw) Urine Clarity (Clear) Urine pH (5.0-8.5) Ur Specific [place] (1.002-1.035) Urine Protein (Neg-Trace) mg/dL Urine Glucose (UA) (Negative) mg/dL Urine Ketones (Negative) mg/dL Urine Occult Blood (Negative) Urine Nitrate (Negative) Urine Bilirubin (Negative) Urine Urobilinogen (Less than 2) mg/dL Ur Leukocyte Esterase (Negative) Urine RBC (0-3) /hpf Urine WBC (0-5) /hpf Ur Squamous Epith Cells (0-5) /hpf Micro UA Comment Ur Microscopic Review Urine Culture Comments Salicylates 4.6 (2.8-20.0) mg/dL Urine Opiates Screen Neg (Neg) Acetaminophen (10.0-30.0) mcg/mL Ur Barbiturates Screen Neg (Neg) Ur Amphetamines Screen Neg (Neg) U Benzodiazepines Scrn Pos H (Neg) Urine Cocaine Screen Neg (Neg) U Cannabinoids Screen Pos H (Neg) Serum Alcohol (0-5) mg/dL 06/13/18 06/13/18 Range/Units 12:05 12:35 WBC (4.0-11.0) th/mm3 RBC (4.00-5.30) mil/mm3 Hgb (11.6-15.3) gm/dL Hct (35.0-46.0) % MCV (80.0-100.0) fL MCH (27.0-34.0) pg MCHC (32.0-36.0) % RDW (11.6-17.2) % Plt Count (150-450) th/mm3 MPV (7.0-11.0) fL Prelim Diff (Auto) Neut % (Auto) (16.0-70.0) % Lymph % (Auto) (9.0-44.0) % Wayne % (Auto) (0.0-8.0) % Eos % (Auto) (0.0-4.0) % Baso % (Auto) (0.0-2.0) % Neut # (Auto) (1.8-7.7) th/mm3 Lymph # (Auto) (1.0-4.8) th/mm3 Wayne # (Auto) (0.0-0.9) th/mm3 Eos # (Auto) (0.0-0.4) th/mm3 Baso # (Auto) (0.0-0.2) th/mm3 WBC Differential Seg Neuts % (Manual) (16-70) % Lymphocytes % (Manual) (9-44) % Monocytes % (Manual) (0-8) % Eosinophils % (Manual) (0-4) % Abs Neuts (Manual) (1.8-7.7) th/mm3 Differential Comment Platelet Estimate (Normal) Platelet Morphology (Normal) Puncture Site Right radial Patient Temperature 98.6 O2 Saturation 95 (90-100) % ABG pH 7.12 L* (7.380-7.420) ABG pCO2 79 H* (38-42) mmHg ABG pO2 187 H (61-120) mmHg ABG HCO3 25 (22-26) mmol/L ABG O2 Content 22.7 H (12.0-20.0) Vol % ABG Base Excess -3.7 L (-2-2) mmol/L ABG Methemoglobin 0.9 (0-2) % Jaime Test Present Hemoglobin 16.9 H (12.0-16.0) G/DL Carboxyhemoglobin 3.1 (0-4) % O2 Delivery Device Vent Vent Setting Prvc/16/450/10/70 Inspired O2 70 % Critical Value Yes Sodium (136-145) meq/L Potassium (3.5-5.1) meq/L Chloride (98-107) meq/L Carbon Dioxide (21.0-32.0) meq/L Anion Gap (5-15) meq/L BUN (7-18) mg/dL Creatinine (0.50-1.00) mg/dL Estimated GFR (>89) mL/min Random Glucose (74-106) mg/dL Calcium (8.5-10.1) mg/dL Phosphorus (2.5-4.9) mg/dL Magnesium (1.5-2.5) mg/dL Total Bilirubin (0.2-1.0) mg/dL AST (15-37) U/L ALT (10-53) U/L Alkaline Phosphatase (45-117) U/L Ammonia (11-32) mcmol/L Troponin I (0.02-0.05) ng/mL Total Protein (6.4-8.2) g/dL Albumin (3.4-5.0) g/dL TSH (0.358-3.740) uIU/mL Urine Color Yellow (Yellw/Straw) Urine Clarity Cloudy H (Clear) Urine pH 5.0 (5.0-8.5) Ur Specific [place] 1.014 (1.002-1.035) Urine Protein 30 H (Neg-Trace) mg/dL Urine Glucose (UA) 50 (Negative) mg/dL Urine Ketones Negative (Negative) mg/dL Urine Occult Blood Negative (Negative) Urine Nitrate Negative (Negative) Urine Bilirubin Negative (Negative) Urine Urobilinogen Less than 2 (Less than 2) mg/dL Ur Leukocyte Esterase Negative (Negative) Urine RBC 3 (0-3) /hpf Urine WBC 2 (0-5) /hpf Ur Squamous Epith Cells 2 (0-5) /hpf Micro UA Comment Culture not ind Ur Microscopic Review Not Reportable Urine Culture Comments Culture not ind Salicylates (2.8-20.0) mg/dL Urine Opiates Screen (Neg) Acetaminophen (10.0-30.0) mcg/mL Ur Barbiturates Screen (Neg) Ur Amphetamines Screen (Neg) U Benzodiazepines Scrn (Neg) Urine Cocaine Screen (Neg) U Cannabinoids Screen (Neg) Serum Alcohol (0-5) mg/dL Imaging Data Radiologist's impression: Chest X-Ray 06/13/18 12:00 CONCLUSION: 1. ETT and NGT in good position. 2. Mild interstitial edema. ECG Data Attestation: I personally reviewed and interpreted this ECG as follows: Interpretation: Rate: 95 BPM Rhythm: Sinus [place]: Normal Intervals: Normal intervals, no blocks, QTc 400 ms Q waves: V2 T waves: Inverted in V2 ST segments: No elevations or depressions Impression: Non-specific EKG, Q wave in V2 is new but otherwise no significant changes as compared to EKG from 12/24/2016. Discharge Plan Discharge Disposition Patient Disposition: ED Admit(ED Internal Use Only) Discharge Condition Condition: Serious Discharge Order Discharge Orders: ED Use Only Admit Order (Routine); Ordered 06/13/18 Ordered By: Eve Delatorre Discharge Details Diagnosis: Drug overdose, Acute respiratory failure with hypoxia, Aspiration pneumonitis, Encephalopathy, toxic Physicians Team ED Provider: Eve Delatorre Primary Care Provider: UNKNOWN, Attending Provider: Gustavo Cotton Status ED Status: Admitted Patient
[2018-06-13] MEDS ORDERED: Acetaminophen 325 MG Tablet PO PRN (13:21)
[2018-06-13] MEDS ORDERED: Bisacodyl 10 MG Supp RECTAL PRN (13:21)
[2018-06-13] MEDS ORDERED: Magnesium Sulfate Inj 4 GM in Sodium Chlor 0.9% Inj 92 ML IV.SIG PRN (13:25)
[2018-06-13] MEDS ORDERED: Magnesium Sulfate Inj 2 GM in Sodium Chlor 0.9% Inj 96 ML IV.SIG PRN (13:25)
[2018-06-13] MEDS ORDERED: Potassium Chlor 20 mEq Premix 20 MEQ/100 ML PIGGYBACK IV.SIG PRN (13:25)
[2018-06-13] MEDS ORDERED: Potassium Phosphate Inj 30 MMOL in Sodium Chlor 0.9% Inj 250 ML IV.SIG PRN (13:25)
[2018-06-13] MEDS ORDERED: Potassium Chlor 40 mEq Premix 40 MEQ/100 ML PIGGYBACK IV.SIG PRN ×2 (13:25)
[2018-06-13] MEDS ORDERED: Magnesium Oxide 400 MG Tablet PO PRN (13:25)
[2018-06-13] MEDS ORDERED: Sodium Phosphate Inj 30 MMOL in Sodium Chlor 0.9% Inj 250 ML IV.SIG PRN (13:25)
[2018-06-13] MEDS ORDERED: Potassium Chloride 25 MEQ Effervescent Tablet PO PRN (13:25)
[2018-06-13] MEDS ORDERED: Potassium Phosphate 500 MG Soluble Tablet PO PRN ×2 (13:25)
[2018-06-13] MEDS ORDERED: Dextrose 50% in Water 50 ML Vial IV.PUSH PRN (13:26)
--- NOTE | 2018-06-13 13:55 | P.PCN ---
Date of procedure: 06/13/18 Pre-op diagnosis: aspiration pneumonitis Post-op diagnosis: same Procedure: Patient was identified by armband prior to procedure and the ventilator was placed on 100% FiO2. Time out taken. Patient was appropriately sedated with propofol. Please refer to MAR for dosages. Bronchoscope introduced into patient's endotracheal tube. Endotracheal tube was positioned at 24 cm at the lip and appeared to be above the shanna. Upon visualization of the shanna, no significant abnormalities were noted. Right mainstem bronchus was identified first via landmarks and the bronchoscope was advanced to the trifurcation; a moderate amount of thin white secretions were noted in the RUL which were easily suctioned. Left mainstem bronchus was intubated with bronchoscope and no significant secretions or particulate matter were noted. Airway appeared normal. No lesions were identified. Patient tolerated procedure well without desaturation. Continue with ventilatory support with current settings. Aggressive pulmonary hygiene. Surgeon: Eve Delatorre Condition: stable Disposition: ICU
--- NOTE | 2018-06-13 14:01 | P.HPCC ---
History of Present Illness Service: Critical care medicine Primary Care Physician: UNKNOWN Chief Complaint: Overdose History of Present Illness: This is a 52-year-old female. Admission 06/13/2007. Past medical includes coronary disease, bipolar disorder, hypertension hyperlipidemia. Most recent admission was for chest pain. A negative Lexiscan ejection fraction greater than 69% for chest pain. She is on aspirin and Plavix and lipid- lowering agents at home per records in 2017. Patient presents to [facility] under Dyson act orotracheally intubated after being evaluated by EMS for overdose. This individual was reportedly found unresponsive by family, somnolent and not protecting airway, required intubation 7.5 ET tube by EMS prior to arrival. She had copious emesis noted in her airway during intubation. EMS found bottles of fluoxetine, omeprazole, carvedilol, Joseph Ryan hard alcohol, and marijuana with various copious paraphernalia next to the patient. It is unclear if this was an intentional overdose attempt. Patient on Dyson act report states she killed her dogs? The patient arrived intubated and there are no friends or family members available Patient received 50 mg recommended and was bronched in the ED. Minimal secretions. She does not have a leukocytosis, polycythemia, remainder laboratories essentially normal. CT of the brain is currently pending. She is currently on propofol drip at 20 mg/kg/min. Inpatient Certification: I certify that the inpatient services were ordered in accordance with Medicare regulations governing the order. This includes certification that hospital inpatient services are reasonable and necessary and in the case of services not specified as inpatient-only under 42 CFR 419.22(n), that they are appropriately provided as inpatient services in accordance to with the 2-midnight benchmark under 43 CFR 412.3(e) Estimated Total Length of Stay (Days): 5 Plans for Post Hospital Care: Not yet determined Review of Systems unobtainable due to endotracheal tube PMFSH - History History Provided By: Tactical Air Control Party / EMT - Medical History Medical History: Medical History (Last Updated 06/13/18 @ 13:54 by Gustavo Cotton MD) Bipolar disorder Coronary artery disease Depression Essential hypertension H/O gastroesophageal reflux (GERD) Hyperlipidemia - Surgical History Surgical History: Surgical History (Last Updated 06/13/18 @ 13:54 by Gustavo Cotton MD) History of partial hysterectomy History of tubal ligation - Family History Family History: Family History (Last Updated 06/13/18 @ 13:55 by Gustavo Cotton MD) Father Family history of CABG Mother Family history of pacemaker - Social History I have reviewed the patient's Social History: Yes - Tobacco History Second Hand Smoke Exposure: Yes Tobacco Use In Past 30 Days: Yes Smoking Status: Current every day smoker - Alcohol History How Often Do You Have a Drink Containing Alcohol: Unable to Obtain - Travel History Recent Travel in the [place] Within the Last 8 Weeks: No Recent Travel Out of the Country Within the Last 8 Weeks: No - Immunization History Tetanus Immunization: Unable to Assess Medications and Allergies Active Medications: Active Medications Acetaminophen (Tylenol) 650 mg PO Q6H PRN PRN Reason: Fever >101f Al Hydroxide/Mg Hydroxide (Milk Of Magnyuliya Liq) 30 ml PO Q12H PRN PRN Reason: Mild Constipation Albuterol (Albuterol Neb (Prn)) 2.5 mg NEB Q2HR NEB PRN PRN Reason: SHORTNESS OF BREATH/WHEEZING Albuterol (Duoneb Neb (Jaimie)) 1 ampul NEB Q4HR NEB JAIMIE Artificial Tears (Tears Naturale Opth Drops) 1 drop EACH EYE Q8H JAIMIE Bisacodyl (Dulcolax Supp) 10 mg RECTAL DAILY PRN PRN Reason: SEVERE CONSITIPATION Chlorhexidine Gluconate (Peridex 0.12% Oral Kit) 15 ml OROPHARYNG BID@0800, 2000 JAIMIE Chlorhexidine Gluconate (Peridex 0.12% Oral Kit) 15 ml OROPHARYNG BID@0800, 2000 JAIMIE Chlorhexidine Gluconate (Chlorhexidine 2% Cloth) 3 pack TOPICAL DAILY@0400 JAIMIE Stop: 06/19/18 03:59 Chlorhexidine Gluconate (Chlorhexidine 2% Cloth) 3 pack TOPICAL DAILY@0400 PRN PRN Reason: Extra cloth needed Stop: 06/19/18 03:59 Dextrose (D50w Vial) 50 ml IV.PUSH UNSCH PRN PRN Reason: PER HYPOGLYCEMIA PROTOCOL Glucagon (Glucagon Inj) 1 mg OTHER PRN PRN PRN Reason: for Hypoglycemia Protocol Propofol (Diprivan 1000 Mg/100 Ml Inj) 1,000 mg in 100 mls @ 2.722 mls/hr IV.CONT TITRATE PRN; Protocol PRN Reason: Per Protocol Last Titration: 06/13/18 13:33 Dose: 20 mcg/kg/min, 10.89 mls/hr Sodium Chloride (Ns Inj) 1,000 mls @ 84 mls/hr IV.CONT .[id number] JAIMIE Multivitamins 10 ml/ Thiamine HCl 100 mg/ Folic Acid 1 mg/Sodium Chloride 511.2 mls @ 125 mls/hr IV.SIG Q24H [facility] Stop: 06/15/18 19:06 Magnesium Sulfate 4 gm/ Sodium (Chloride) 100 mls @ 50 mls/hr IV.SIG UNSCH PRN PRN Reason: For Magnesium 0.9 - 1.1 mg/dL Magnesium Sulfate 2 gm/ Sodium (Chloride) 100 mls @ 50 mls/hr IV.SIG UNSCH PRN PRN Reason: For Magnesium 1.2 - 1.6 mg/dL Potassium Chloride (Kcl 40 Meq Premix Inj) 40 meq in 100 mls @ 25 mls/hr IV.SIG Q2H PRN PRN Reason: For Potassium 2.8 - 3.2 mEq/L Potassium Chloride (Kcl 20 Meq Premix Inj) 20 meq in 100 mls @ 50 mls/hr IV.SIG Q2H PRN PRN Reason: For Potassium 3.3 - 3.5 mEq/L Potassium Chloride (Kcl 40 Meq Premix Inj) 40 meq in 100 mls @ 25 mls/hr IV.SIG UNSCH PRN PRN Reason: For Potassium 3.3 - 3.5 mEq/L Potassium Chloride (Kcl 20 Meq Premix Inj) 20 meq in 100 mls @ 50 mls/hr IV.SIG Q2H PRN PRN Reason: For Potassium 2.8 - 3.2 mEq/L Potassium Phosphate 30 mmol/ (Sodium Chloride) 260 mls @ 42 mls/hr IV.SIG UNSCH PRN PRN Reason: SEE LABEL COMMENTS Sodium Phosphate 30 mmol/ (Sodium Chloride) 260 mls @ 42 mls/hr IV.SIG UNSCH PRN PRN Reason: For Phosphorus < 2.5 mg/dL Insulin Aspart (Novolog Insulin Correctional Sugar Inj) 0 unit SQ Q6HR [facility]; Protocol Lactulose (Lactulose Liq) 30 ml PO DAILY PRN PRN Reason: SEVERE CONSITIPATION Magnesium Oxide (Mag-Ox) 800 mg PO UNSCH PRN PRN Reason: For Magnesium 1.2 - 1.6 mg/dL Midazolam HCl (Versed Inj) 2 mg IV.PUSH Q1H PRN PRN Reason: SEDATION Miscellaneous Medication () 1 each OROPHARYNG 0000,0400,1200,1600 JAIMIE Miscellaneous Medication () 1 each OROPHARYNG 0000,0400,1200,1600 JAIMIE Ondansetron HCl (Zofran Inj) 4 mg IV.PUSH Q6H PRN PRN Reason: NAUSEA OR VOMITING Pantoprazole Sodium (Protonix Inj) 40 mg IV.PUSH DAILY JAIMIE Potassium Bicarb/Potassium Chloride (K-Lyte Cl Eff) 50 meq PO UNSCH PRN PRN Reason: For Potassium 3.3 - 3.5 mEq/L Potassium Phosphate (K-Phos Original) 2,000 mg PO Q4H PRN PRN Reason: Phosphorus Less Than 2.5 mg/dL Potassium Phosphate (K-Phos Original) 2,000 mg PO UNSCH PRN PRN Reason: SEE LABEL COMMENTS Senna/Docusate Sodium (Kathi-Colace) 1 tab PO BID JAIMIE Sennosides (Senokot) 17.2 mg PO Q12H PRN PRN Reason: Moderate Constipation Sodium Chloride (Ns Flush) 2 ml IV.FLUSH PRN PRN PRN Reason: FLUSH AFTER USING IV ACCESS Sodium Chloride (Ns Flush) 2 ml IV.FLUSH BID JAIMIE Sodium Chloride (Ns Flush) 2 ml IV.FLUSH PRN PRN PRN Reason: FLUSH AFTER USING IV ACCESS Allergies Allergy/AdvReac Type Severity Reaction Status Date / Time codeine Allergy Severe Unverified 01/24/17 00:55 penicillin G Allergy Severe Unverified 01/24/17 00:55 *MDRO Multi-Drug Resistant AdvReac Unknown Uncoded 12/24/16 11:52 Organism Home Medications Medication Instructions Recorded Confirmed Type Unable to Obtain Home Meds 06/13/18 06/13/18 History Results - Labs CBC & Chem 7: 06/13/18 12:00 06/13/18 12:00 Labs: Short CBC 06/13/18 Range/Units 12:00 WBC 13.4 H (4.0-11.0) th/mm3 Hgb 15.7 H (11.6-15.3) gm/dL Hct 45.5 (35.0-46.0) % Plt Count 280 (150-450) th/mm3 BMP 06/13/18 12:00 Sodium 141 Potassium 3.9 Chloride 109 H Carbon Dioxide 23.5 BUN 10 Creatinine 0.91 Calcium 8.0 L Cardiac Enzymes 06/13/18 Range/Units 12:00 Troponin I Less than 0.02 L (0.02-0.05) ng/mL Liver Function 06/13/18 Range/Units 12:00 Total Bilirubin 0.3 (0.2-1.0) mg/dL AST 29 (15-37) U/L ALT 39 (10-53) U/L Alkaline Phosphatase 31 L (45-117) U/L Albumin 3.3 L (3.4-5.0) g/dL Urine 06/13/18 Range/Units 12:05 Urine Color Yellow (Yellw/Straw) Urine Clarity Cloudy H (Clear) Urine pH 5.0 (5.0-8.5) Ur Specific [place] 1.014 (1.002-1.035) Urine Protein 30 H (Neg-Trace) mg/dL Urine Glucose (UA) 50 (Negative) mg/dL - Imaging Impressions Chest X-Ray 06/13/18 12:00 CONCLUSION: 1. ETT and NGT in good position. 2. Mild interstitial edema. Exam Vital signs: Vital Signs 06/13/18 11:52 06/13/18 12:03 06/13/18 12:18 Temperature 98.6 F Pulse Rate 99 H 98 H Respiratory Rate 17 18 Blood Pressure 221/105 H 200/96 H Pulse Oximetry 97 99 97 06/13/18 12:30 06/13/18 12:31 06/13/18 13:00 Temperature Pulse Rate 124 H 105 H Respiratory Rate 16 20 Blood Pressure 249/119 H 175/96 H Pulse Oximetry 99 98 99 06/13/18 13:22 06/13/18 13:35 06/13/18 13:46 Temperature Pulse Rate 106 H 108 H Respiratory Rate 20 16 18 Blood Pressure 177/103 H 170/102 H Pulse Oximetry 100 99 100 06/13/18 13:47 Temperature Pulse Rate Respiratory Rate Blood Pressure Pulse Oximetry 100 Intake & Output 06/12/18 06/13/18 06/13/18 18:59 06:59 18:59 Weight 90.718 kg - Constitutional no acute distress - Routine HEENT Exam Head: Present: normocephalic, atraumatic Eye: Present: EOMI, PERRL, normal accommodation ENT: Present: mucous membranes moist - Routine Neck Exam Present: supple - Routine Chest/Breast/Axilla Exam Chest wall: Absent: tenderness Breast: Absent: tenderness Axillae: Absent: lymphadenopathy - Routine Respiratory Exam Present: diminished air movement. Absent: accessory muscle use, rhonchi - Routine Cardiovascular Exam Present: S1, S2, tachycardia. Absent: murmur - Routine Abdominal Exam Present: soft, normoactive bowel sounds - Routine Extremities Exam Absent: cyanosis, clubbing, edema - Routine Skin Exam Present: intact - Routine Neurological Exam Present: CN II-XII intact. Absent: alert, oriented X3, sensory deficit, motor deficit Septic Shock Reassessment Septic shock perfusion: reassessment completed Caprini VTE Risk Assessment Caprini VTE Risk Assessment: Moderate/High Risk (score >= 2) Caprini Risk Assessment Model: Point Value = 1 Point Value = 2 Point Value = 3 Point Value = 5 Age 41-60 Minor surgery BMI > 25 kg/m2 Swollen legs Varicose veins or History of unexplained or recurrent spontaneous Oral contraceptives or hormone replacement Sepsis (< 1 month) Serious lung disease, including pneumonia (< 1 month) Abnormal pulmonary function Acute myocardial infarction Congestive heart failure (< 1 month) History of inflammatory bowel disease Medical patient at bed rest Age 61-74 Arthroscopic surgery Major open surgery (> 45 min) Laparoscopic surgery (> 45 min) Malignancy Confined to bed (> 72 hours) Immobilizing plaster cast Central venous access Age >= 75 History of VTE Family history of VTE Factor V Leiden Prothrombin [id number] Lupus anticoagulant Anticardiolipin antibodies Elevated serum homocysteine Heparin-induced thrombocytopenia Other congenital or acquired thrombophilia Stroke (< 1 month) Elective arthroplasty Hip, pelvis, or leg fracture Acute spinal cord injury (< 1 month) Prophylaxis Regimen: Total Risk Factor Score Risk Level Prophylaxis Regimen 0-1 Low Early ambulation 2 Moderate Order ONE of the following: *Sequential Compression Device (SCD) *Heparin 5000 units SQ BID 3-4 Higher Order ONE of the following medications: *Heparin 5000 units SQ TID *Enoxaparin/Lovenox 40 mg SQ daily (WT < 150 kg, CrCl > 30 mL/min) *Enoxaparin/Lovenox 30 mg SQ daily (WT < 150 kg, CrCl > 10-29 mL/min) *Enoxaparin/Lovenox 30 mg SQ BID (WT < 150 kg, CrCl > 30 mL/min) AND/OR *Sequential Compression Device (SCD) 5 or more Highest Order ONE of the following medications: *Heparin 5000 units SQ TID (Preferred with Epidurals) *Enoxaparin/Lovenox 40 mg SQ daily (WT < 150 kg, CrCl > 30 mL/min) *Enoxaparin/Lovenox 30 mg SQ daily (WT < 150 kg, CrCl > 10-29 mL/min) *Enoxaparin/Lovenox 30 mg SQ BID (WT < 150 kg, CrCl > 30 mL/min) AND *Sequential Compression Device (SCD) Assessment and Plan - Assessment and Plan Plan: Neuro/Psych: Acute encephalopathy secondary to poly-substance overdose Bipolar disorder NOS Urine toxicology screen positive for benzodiazepines, cannabinoids EtOH use Currently on propofol drip with as needed midazolam for sedation/analgesia/vent synchrony Goal of RA SS -[address] brain currently pending Patient is under Dyson act. Vitamin bag daily times 3 days. Monitor for withdrawals/DTs CV: Sinus tachycardia Coronary artery disease History of essential hypertension Hyperlipidemia Patient is currently normal saline at 84 cc an hour Currently not requiring vasopressors and/or antihypertensives Obtain home medications. As needed labetalol, hydralazine and Nitropaste Follow-up on EKG Lexiscan revealed EF 60% 2016. No regional wall motion normality. Resp: Acute respiratory failure Aspiration Tobaccoism PRVC ventilation Ventilator bundle Head of bed at 30 degrees Albuterol/ipratropium aerosols every 4 hours with albuterol aerosols every 2 hours as needed dyspnea CPAP trials when clinically indicated Follow postintubation ABG and chest x-ray Echo cessation education when clinically relevant GI: NG/OG tube to low inner wall suction Pantoprazole for GI prophylax He states it is less than 1 tablet daily for bowel regimen : Straight catheterization as needed Endo: Sliding scale insulin aspart insulin every 6 hours to maintain euglycemia low protocol TSH was 1.03 Renal: Monitor urine output Accurate I's and O's Follow BMP in a.m. / Heme: Polycythemia/chronic Leukocytosis Monitor CBC daily. Follow trends. No indication for transfusion of blood products at this time ID: Monitor for signs and symptomatology infection Check sputum MSK: Elevated BMI Weight loss encouraged PT evaluate and treat FEN: Replace electrolytes as clinically indicated per ICU electrolyte protocol Currently normal saline at 84 cc an hour Access -Utilize peripheral IV. Central line if indicated Prophylaxis -GI -pantoprazole -DVT -SCD/holding pharmacologic prophylaxis pending CT brain Admission 35 minutes critical care time Code Status: Full code
[2018-06-13] MEDS: Sod Chloride 0.9% Inj 1,000 ML IV.CONT SCH (15:09)
[2018-06-13 16:05] LABS: ABG Base Excess -1.4 mmol/L (-2-2); ABG PCO2 41 mmHg (38-42); ABG PO2 183 mmHg (61-120)
--- NOTE | 2018-06-13 16:24 | CT ---
EXAM DATE: 06/13/2018 4:20 PM EST AGE/SEX: 52 years / Female INDICATIONS: Altered mental status. CLINICAL DATA: This is the patient's initial encounter. Patient reports that signs and symptoms have been present for 1 day and indicates a pain score of Nonresponsive. MEDICAL/SURGICAL HISTORY: Non-responsive. Non-responsive. RADIATION DOSE: 34.94 CTDI (mGy) COMPARISON: No prior exams available for comparison. TECHNIQUE: CT of the head without contrast. Using automated exposure control and adjustment of the mA and/or kV according to patient size, radiation dose was kept as low as reasonably achievable to ob tain optimal diagnostic quality images. DICOM format image data is available electronically for revi ew and comparison. FINDINGS: Cerebrum: The ventricles are normal for age. No evidence of midline shift, mass lesion, hemorrhage or acute infarction. No extraaxial fluid collections are seen. Posterior Fossa: The cerebellum and brainstem are intact. The 4th ventricle is midline. The cerebe llopontine angle is unremarkable. Extracranial: The visualized portion of the orbits is intact. Skull: The calvaria is intact. No evidence of skull fracture. CONCLUSION: 1. Negative CT Head non contrast. 2. No evidence of acute infarct, hemorrhage, mass or edema. . Electronically signed by: Satish Kirkpatrick MD Board Certified Radiologist 06/13/2018 4:22 PM EST
[2018-06-13] MEDS: Artificial Tears Opth Drops 15 ML Bottle EACH EYE SCH (16:39)
[2018-06-13] MEDS: Multivitamin Inj 10 ML, Thiamine Inj 100 MG, Folic Acid Inj 1 MG in Sodium Chlor 0.9% I... IV.SIG SCH (16:39)
[2018-06-13] MEDS: Oral Hygiene Kit OROPHARYNG SCH ×2 (16:40)
[2018-06-13] MEDS ORDERED: Famotidine PF Inj 20 MG/2 ML Vial IV.PUSH SCH (21:00)
[2018-06-13] MEDS ORDERED: Famotidine 20 MG Tablet PO SCH (21:00)
[2018-06-13] MEDS: Chlorhexidine 0.12% Oral Kit 15 ML UDC OROPHARYNG SCH ×2 (22:34)
[2018-06-13] MEDS: Insulin NovoLOG Aspart Correctional Sugar Inj SQ SCH (22:34)
[2018-06-13] MEDS: Senna/Docusate Sodium 8.6/50 MG Tablet PO SCH (22:35)
[2018-06-14] MEDS: Insulin NovoLOG Aspart Correctional Sugar Inj SQ SCH ×4 (02:25→17:13)
[2018-06-14] MEDS: Artificial Tears Opth Drops 15 ML Bottle EACH EYE SCH ×4 (02:25→22:54)
[2018-06-14] MEDS: Oral Hygiene Kit OROPHARYNG SCH ×8 (02:25→16:05)
[2018-06-14] MEDS: Sod Chloride 0.9% Inj 1,000 ML IV.CONT SCH ×2 (02:28→13:59)
[2018-06-14] MEDS: Propofol 1000 mg/100 ml Inj 1,000 MG/100 ML BOTTLE IV.CONT PRN ×3 (02:32→08:12)
[2018-06-14] MEDS ORDERED: Chlorhexidine Gluconate 2% 1 Pack (2 Cloths) TOPICAL PRN (04:00)
[2018-06-14 04:14] LABS: Baso # (Auto) 0.1 th/mm3 (0.0-0.2); Baso % (Auto) 0.6 % (0.0-2.0); Eos % (Auto) 0.2 % (0.0-4.0); Hematocrit 47.4 % (35.0-46.0); Hemoglobin 15.9 gm/dL (11.6-15.3); Lymph # (Auto) 3.8 th/mm3 (1.0-4.8); Lymph % (Auto) 18.2 % (9.0-44.0); Mean Corpuscular HGB Conc 33.6 % (32.0-36.0); Mean Corpuscular Hemoglobin 31.7 pg (27.0-34.0); Mean Corpuscular Volume 94.3 fL (80.0-100.0); Mean Platelet Volume 7.5 fL (7.0-11.0); Mono # (Auto) 1.3 th/mm3 (0.0-0.9); Mono % (Auto) 6.3 % (0.0-8.0); Neut # (Auto) 15.4 th/mm3 (1.8-7.7); Neut % (Auto) 74.7 % (16.0-70.0); Platelet Count 259 th/mm3 (150-450); Red Blood Count 5.03 mil/mm3 (4.00-5.30); Red Cell Distribution Width 14.2 % (11.6-17.2); White Blood Count 20.6 th/mm3 (4.0-11.0)
[2018-06-14 04:21] LABS: Activated Partial Thrombo Time 28.9 sec (23.4-31.7); INR 1.1 Ratio; Prothrombin Time 10.7 sec (9.8-11.6)
[2018-06-14 04:32] LABS: Alanine Aminotransferase 39 U/L (10-53); Albumin 3.3 g/dL (3.4-5.0); Anion Gap 7 meq/L (5-15); Aspartate Aminotransferase 26 U/L (15-37); Blood Urea Nitrogen 7 mg/dL (7-18); Calcium 8.3 mg/dL (8.5-10.1); Carbon Dioxide 24.6 meq/L (21.0-32.0); Chloride 110 meq/L (98-107); Glomerular Filtration Rate 72 mL/min (>89); Glucose,Random 147 mg/dL (74-106); Magnesium 2.1 mg/dL (1.5-2.5); Potassium 3.7 meq/L (3.5-5.1); Sodium 142 meq/L (136-145)
[2018-06-14 04:34] LABS: Alkaline Phosphatase 30 U/L (45-117); Total Protein 7.2 g/dL (6.4-8.2)
[2018-06-14] MEDS: Chlorhexidine Gluconate 2% 1 Pack (2 Cloths) TOPICAL SCH (05:46)
[2018-06-14] MEDS: Senna/Docusate Sodium 8.6/50 MG Tablet PO SCH ×2 (08:01→20:00)
[2018-06-14] MEDS: Chlorhexidine 0.12% Oral Kit 15 ML UDC OROPHARYNG SCH ×4 (08:01→19:50)
[2018-06-14] MEDS: Pantoprazole Inj 40 MG Vial IV.PUSH SCH (08:01)
--- NOTE | 2018-06-14 09:25 | P.PNCC ---
Subjective Subjective Remarks/Hospital Course: This is a 52-year-old female. Admission 06/13/2007. Past medical includes coronary disease, bipolar disorder, hypertension hyperlipidemia. Most recent admission was for chest pain. A negative Lexiscan ejection fraction greater than 69% for chest pain. She is on aspirin and Plavix and lipid- lowering agents at home per records in 2017. Patient presents to [facility] under Dyson act orotracheally intubated after being evaluated by EMS for overdose. This individual was reportedly found unresponsive by family, somnolent and not protecting airway, required intubation 7.5 ET tube by EMS prior to arrival. She had copious emesis noted in her airway during intubation. EMS found bottles of fluoxetine, omeprazole, carvedilol, Joseph Ryan hard alcohol, and marijuana with various copious paraphernalia next to the patient. It is unclear if this was an intentional overdose attempt. Patient on Dyson act report states she killed her dogs? The patient arrived intubated and there are no friends or family members available Patient received 50 mg recommended and was bronched in the ED. Minimal secretions. She does not have a leukocytosis, polycythemia, remainder laboratories essentially normal. CT of the brain is currently pending. She is currently on propofol drip at 20 mcg/kg/min. SUBJECTIVE: 06/14: Arousable and follows commands. CPAP 10/5 at 40%. Will attempt extubate today. Objective Vital Signs / I&O: Vital Signs 06/13/18 11:52 06/13/18 12:03 06/13/18 12:18 Temperature 98.6 F Pulse Rate 99 H 98 H Respiratory Rate 17 18 Blood Pressure 221/105 H 200/96 H Pulse Oximetry 97 99 97 06/13/18 12:30 06/13/18 12:31 06/13/18 13:00 Temperature Pulse Rate 124 H 105 H Respiratory Rate 16 20 Blood Pressure 249/119 H 175/96 H Pulse Oximetry 99 98 99 06/13/18 13:22 06/13/18 13:35 06/13/18 13:46 Temperature Pulse Rate 106 H 108 H Respiratory Rate 20 16 18 Blood Pressure 177/103 H 170/102 H Pulse Oximetry 100 99 100 06/13/18 13:47 06/13/18 14:17 06/13/18 15:24 Temperature Pulse Rate 110 H 102 H Respiratory Rate 17 20 Blood Pressure 162/89 H 156/94 H Pulse Oximetry 100 100 96 06/13/18 16:24 06/13/18 16:29 06/13/18 16:30 Temperature Pulse Rate 98 H Respiratory Rate 18 16 Blood Pressure Pulse Oximetry 100 100 06/13/18 17:00 06/13/18 17:04 06/13/18 18:00 Temperature 98.6 F Pulse Rate 97 H 100 H 96 H Respiratory Rate 18 Blood Pressure 145/93 H Pulse Oximetry 98 06/13/18 18:03 06/13/18 19:00 06/13/18 19:27 Temperature 99.7 F H Pulse Rate 96 H 97 H 103 H Respiratory Rate 18 1 L 18 Blood Pressure 154/96 H Pulse Oximetry 99 100 100 06/13/18 20:00 06/13/18 21:00 06/13/18 22:00 Temperature 99.7 F H 99.7 F H 99.7 F H Pulse Rate 102 H 103 H 102 H Respiratory Rate 18 20 20 Blood Pressure 149/93 H 147/94 H 158/95 H Pulse Oximetry 98 99 99 06/13/18 23:00 06/13/18 23:12 06/14/18 00:00 Temperature 99.7 F H 99.7 F H Pulse Rate 101 H 100 H 101 H Respiratory Rate 19 19 20 Blood Pressure 154/87 H 152/90 H Pulse Oximetry 99 99 98 06/14/18 01:00 06/14/18 02:00 06/14/18 03:00 Temperature 99.7 F H 99.7 F H 99.6 F Pulse Rate 100 H 101 H 102 H Respiratory Rate 19 19 19 Blood Pressure 146/84 H 146/87 H 152/85 H Pulse Oximetry 98 98 98 06/14/18 03:20 06/14/18 04:00 06/14/18 05:00 Temperature 99.7 F H 99.0 F Pulse Rate 103 H 121 H 120 H Respiratory Rate 18 26 H 23 Blood Pressure 156/81 H 174/86 H Pulse Oximetry 98 98 97 06/14/18 06:00 06/14/18 07:00 06/14/18 07:07 Temperature 99.0 F 99.2 F Pulse Rate 116 H 111 H Respiratory Rate 19 19 18 Blood Pressure 141/77 H 139/82 Pulse Oximetry 100 100 100 06/14/18 07:14 06/14/18 08:00 Temperature 99.6 F Pulse Rate 116 H 110 H Respiratory Rate 21 20 Blood Pressure 147/86 H Pulse Oximetry 99 Intake & Output 06/13/18 06/14/18 06/14/18 18:59 06:59 18:59 Intake Total 100 / 100 1800 / 1800 111.2 / 111.2 Output Total 475 / 475 1350 / 1350 Balance -375 / -375 450 / 450 111.2 / 111.2 Weight 90.718 kg 72.5 kg Intake: IV 100 / 100 1800 / 1800 111.2 / 111.2 Diprivan 1000 mg/100 ml Inj 1, 100 / 100 300 / 300 100 / 100 000 mg In 100 ml @ 5 MCG/KG/MIN 2.722 mls/hr IV.CONT TITRATE PRN Rx#:[id number] NS Inj 1,000 ML @ 84 mls/hr IV. 1000 / 1000 CONT .[id number] [facility] Rx#:[id number] MVI-12 Inj 10 ML Thiamine Inj 500 / 500 11.2 / 11.2 100 MG Folvite Inj 1 MG In NS Inj 500 ML @ 125 mls/hr IV.SIG Q24H [facility] Rx#:[id number] Oral 0 / 0 Output: Urine 1150 / 1150 Stool 0 / 0 Urine/Stool Mix 0 / 0 Urine Amount (Catheter) 375 / 375 Indwelling Urethral Catheter 375 / 375 Gastric Drainage 100 / 100 200 / 200 Orogastric Tube 100 / 100 200 / 200 Other: # Bowel Movements 0 # Incontinent Bowel Movements 0 Result Diagrams: 06/14/18 03:55 06/14/18 03:55 Other Results: Microbiology 06/13/18 21:30 Sputum - Endotracheal Gram Stain - Final Imaging: Chest X-Ray 06/13/18 12:00 CONCLUSION: 1. ETT and NGT in good position. 2. Mild interstitial edema. Head CT 06/13/18 12:00 CONCLUSION: 1. Negative CT Head non contrast. 2. No evidence of acute infarct, hemorrhage, mass or edema. . Objective Remarks: GENERAL: 52-year-old female currently orotracheally intubated SKIN: Warm and dry. No rash. HEAD: Atraumatic. Normocephalic. EYES: Pupils equal and round. No scleral icterus. No injection or drainage. ENT: No nasal bleeding or discharge. Mucous membranes pink and moist. NECK: Trachea midline. No JVD. CARDIOVASCULAR: Regular rate and rhythm. S1, S2 no S4. RESPIRATORY: No accessory muscle use. Clear to auscultation. Breath sounds equal bilaterally. GASTROINTESTINAL: Abdomen soft, non-tender, nondistended. Hepatic and splenic margins not palpable. MUSCULOSKELETAL: Extremities without clubbing, cyanosis, or edema. No obvious deformities. NEUROLOGICAL: Arousable on the ventilator follows commands. Moves all 4 extremities spontaneously. Assessment and Plan - Assessment and Plan Plan: Neuro/Psych: Acute encephalopathy secondary to poly-substance overdose Bipolar disorder NOS Urine toxicology screen positive for benzodiazepines, cannabinoids EtOH use Currently on propofol drip with as needed midazolam for sedation/analgesia/vent synchrony Goal of RA SS -[address] brain revealed no acute findings Patient is under Dyson act. Vitamin bag daily times 3 days. Monitor for withdrawals/DTs CIWA protocol initiated Dexmedetomidine drip for vent weaning CV: Sinus tachycardia Coronary artery disease History of essential hypertension Hyperlipidemia Patient is currently normal saline at 84 cc an hour Currently not requiring vasopressors and/or antihypertensives Obtain home medications. As needed labetalol, hydralazine and Nitropaste Follow-up on EKG Lexiscan revealed EF 60% 2016. No regional wall motion normality. Resp: Acute respiratory failure Aspiration Tobaccoism PRVC ventilation Ventilator bundle Head of bed at 30 degrees Albuterol/ipratropium aerosols every 4 hours with albuterol aerosols every 2 hours as needed dyspnea CPAP trials when clinically indicated Follow postintubation ABG and chest x-ray Echo cessation education when clinically relevant GI: NG/OG tube to low inner wall suction Pantoprazole for GI prophylax He states it is less than 1 tablet daily for bowel regimen : Straight catheterization as needed Endo: Sliding scale insulin aspart insulin every 6 hours to maintain euglycemia low protocol TSH was 1.03 Renal: Monitor urine output Accurate I's and O's Follow BMP in a.m. 06/14 Heme: Polycythemia/chronic Leukocytosis Monitor CBC daily. Follow trends. No indication for transfusion of blood products at this time ID: Monitor for signs and symptomatology infection Check sputum MSK: Elevated BMI Weight loss encouraged PT evaluate and treat FEN: Replace electrolytes as clinically indicated per ICU electrolyte protocol Currently normal saline at 84 cc an hour Access -Utilize peripheral IV. Central line if indicated Prophylaxis -GI -pantoprazole -DVT -SCD/holding pharmacologic prophylaxis pending CT brain Level 3 follow-up
[2018-06-14] MEDS ORDERED: Dexmedetomidine Inj 200 MCG in Sodium Chlor 0.9% Inj 48 ML IV.CONT PRN (09:30)
[2018-06-14] MEDS ORDERED: Haloperidol Inj 5 MG/ML Ampul IV.PUSH PRN (10:00)
[2018-06-14] MEDS ORDERED: LORazepam 1 MG Tablet PO PRN (10:00)
[2018-06-14] MEDS ORDERED: Potassium Chloride 25 MEQ Effervescent Tablet PO ONE (10:00)
[2018-06-14] MEDS ORDERED: RASS Change Order OTHER ONE (10:00)
[2018-06-14] MEDS: Multivitamin Inj 10 ML, Thiamine Inj 100 MG, Folic Acid Inj 1 MG in Sodium Chlor 0.9% I... IV.SIG SCH (14:16)
--- NOTE | 2018-06-14 14:23 | ECG ---
Date Performed: 06/13/2018 Time Performed: 11:56:35 PTAGE: 52 years EKG: Sinus rhythm NORMAL ECG Compared to PREVIOUS TRACING sinus rate is faster PREVIOUS TRACIN12/24/2016 18.24 DOCTOR: Iam Sanders Interpretating Date/Time 06/14/2018 14:22:41
[2018-06-15] MEDS: Sod Chloride 0.9% Inj 1,000 ML IV.CONT SCH ×2 (02:30→12:13)
[2018-06-15] MEDS: Oral Hygiene Kit OROPHARYNG SCH ×8 (02:58→16:05)
[2018-06-15 05:06] LABS: Baso # (Auto) 0.1 th/mm3 (0.0-0.2); Baso % (Auto) 0.5 % (0.0-2.0); Eos # (Auto) 0.1 th/mm3 (0.0-0.4); Hematocrit 39.7 % (35.0-46.0); Hemoglobin 13.5 gm/dL (11.6-15.3); Lymph # (Auto) 4.6 th/mm3 (1.0-4.8); Mean Corpuscular HGB Conc 33.9 % (32.0-36.0); Mean Corpuscular Hemoglobin 31.8 pg (27.0-34.0); Mean Corpuscular Volume 93.8 fL (80.0-100.0); Mean Platelet Volume 8.2 fL (7.0-11.0); Mono # (Auto) 0.9 th/mm3 (0.0-0.9); Mono % (Auto) 7.2 % (0.0-8.0); Neut % (Auto) 55.3 % (16.0-70.0); Platelet Count 190 th/mm3 (150-450); Red Blood Count 4.24 mil/mm3 (4.00-5.30); Red Cell Distribution Width 13.9 % (11.6-17.2); White Blood Count 12.7 th/mm3 (4.0-11.0)
[2018-06-15 05:13] LABS: Anion Gap 8 meq/L (5-15); Blood Urea Nitrogen 9 mg/dL (7-18); Calcium 7.9 mg/dL (8.5-10.1); Carbon Dioxide 25.3 meq/L (21.0-32.0); Chloride 112 meq/L (98-107); Glomerular Filtration Rate Greater Than 89 mL/min (>89); Glucose,Random 110 mg/dL (74-106); Sodium 145 meq/L (136-145)
[2018-06-15 05:21] LABS: Potassium 2.9 meq/L (3.5-5.1)
[2018-06-15] MEDS: Potassium Chlor 20 mEq Premix 20 MEQ/100 ML PIGGYBACK IV.SIG PRN ×4 (06:01→12:12)
[2018-06-15] MEDS: Chlorhexidine Gluconate 2% 1 Pack (2 Cloths) TOPICAL SCH (07:25)
[2018-06-15] MEDS: Artificial Tears Opth Drops 15 ML Bottle EACH EYE SCH ×3 (07:26→22:58)
[2018-06-15] MEDS: Insulin NovoLOG Aspart Correctional Sugar Inj SQ SCH ×5 (07:26→23:45)
[2018-06-15] MEDS: Senna/Docusate Sodium 8.6/50 MG Tablet PO SCH ×2 (08:56→20:50)
[2018-06-15] MEDS: Chlorhexidine 0.12% Oral Kit 15 ML UDC OROPHARYNG SCH ×4 (08:56→20:09)
[2018-06-15] MEDS: Pantoprazole Inj 40 MG Vial IV.PUSH SCH (08:56)
[2018-06-15] MEDS: FLUoxetine 20 MG Capsule PO SCH ×2 (08:59→20:10)
[2018-06-15] MEDS ORDERED: ALPRAZolam 0.5 MG Tablet PO PRN (09:00)
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
[2018-06-15] MEDS: amLODIPine 10 MG Tablet PO SCH (11:56)
--- NOTE | 2018-06-15 12:25 | P.PNIM ---
Subjective Interval history: Patient is sitting up in bed today, conversive, no apparent distress. She reports that her overdose was accidental, admits to history of polysubstance abuse. She denies any suicidal ideations. Physical Exam Vital signs: Last Vital Signs Temp 97.4 F L 06/15/18 08:00 Pulse 94 H 06/15/18 12:00 Resp 32 H 06/15/18 12:00 BP 133/70 06/15/18 12:00 Pulse Ox 100 06/15/18 12:00 Intake & Output 06/13/18 06/14/18 06/15/18 06/16/18 06:59 06:59 06:59 06:59 Intake Total 1900 / 1900 4182.4 / 4182.4 1300 / 1300 Output Total 1825 / 1825 1950 / 1950 Balance 75 / 75 2232.4 / 2232.4 1300 / 1300 Weight 72.5 kg 73.8 kg Narrative: GENERAL: AAOx3, no acute distress SKIN: Warm and dry. No rashes HEAD: Atruamtic, normocephalic. EYES: No scleral icterus. No injection or drainage. ENT: Moist mucous membranes, patent nares, no erythema of oropharynx. NECK: Supple, trachea midline. No JVD or lymphadenopathy. Normal thyroid. CARDIOVASCULAR: Regular rate and rhythm. No murmurs, gallops, or rubs. RESPIRATORY: Breath sounds clear equal bilaterally. No crackles or wheezes. No accessory muscle use. GASTROINTESTINAL: Abdomen soft, non-tender, nondistended, normal active bowel sounds MUSCULOSKELETAL: No cyanosis, or edema. NEURO: CN II-XII grossly intact, no focal deficits, no slurring of speech Urinary Catheter Management Indwelling Urethral Catheter: Cath placed during this visit: yes, but has since been removed by the nurse Insertion date: 06/13/18 Insertion time: 12:04 Removal date: 06/14/18 Removal time: 14:10 Results Labs CBC & Chem 7: 06/15/18 03:53 06/15/18 03:53 Labs: Microbiology 06/13/18 21:30 Sputum - Endotracheal Gram Stain - Final 06/13/18 21:30 Sputum - Endotracheal Sputum Culture - Preliminary Heavy growth normal respiratory jasmeet at 24 hours 06/13/18 12:00 Blood - Peripheral Aerobic Blood Culture - Preliminary No growth in 2 days 06/13/18 12:00 Blood - Peripheral Anaerobic Blood Culture - Preliminary No growth in 2 days 06/13/18 12:05 Blood - Peripheral Aerobic Blood Culture - Preliminary No growth in 2 days 06/13/18 12:05 Blood - Peripheral Anaerobic Blood Culture - Preliminary No growth in 2 days Assessment and Plan (1) Substance induced mood disorder: Code(s): F19.94 - Other psychoactive substance use, unspecified with psychoactive substance-induced mood disorder Status: Acute (2) Alcohol abuse: Code(s): F10.10 - Alcohol abuse, uncomplicated Status: Acute (3) Benzodiazepine abuse: Code(s): F13.10 - Sedative, hypnotic or anxiolytic abuse, uncomplicated Status: Acute (4) Marijuana abuse: Code(s): F12.10 - Cannabis abuse, uncomplicated Status: Acute Plan Accidental overdose Patient reports she accidentally took too much Klonopin, thinking this was her blood pressure medicine She has been drinking alcohol and a combination apparently was too much Urine drug screen on admission was positive for benzodiazepine, alcohol, marijuana Suicide risk Patient has been evaluated and cleared by psychiatry, not suicidal Substance related mood disorder Dyson act lifted Polysubstance abuse Patient has insight into her addiction and how this is caused her to end up in the hospital She has been recommended to follow-up with Der[facility] as an outpatient Supraventricular tachycardia Resume Cardizem Hypertension, dyslipidemia Resume amlodipine and Lipitor Discharge planning Patient may be appropriate for discharge today now that she is psychiatrically cleared with Dyson act lifted. Progress Note: Quality VTE Deep Vein Thrombosis/Pulmonary Embolism Present on Admission: No
--- NOTE | 2018-06-15 14:26 | MB ---
cc: Iam Sanders MD DATE: 06/15/2018 REASON FOR CONSULTATION: Abnormal EKG. HISTORY OF PRESENT ILLNESS: The patient is a pleasant 52-year-old woman with known coronary artery disease status post SC and stent about 3 years ago, but has not followed up with cardiology in quite some time. The patient presents with a drug overdose, being found unresponsive by family and briefly intubated, though she is extubated currently. At the scene, Prozac, omeprazole, carvedilol, Joseph Ryan, and marijuana paraphernalia were next to the patient. The patient is currently awake, alert, and asymptomatic, denying chest pain, shortness of breath, lightheadedness or dizziness. PAST MEDICAL HISTORY: Bipolar disorder, coronary artery disease status post stent in 2014, depression, hypertension, hyperlipidemia, GERD. CURRENT MEDICATIONS: 1. Xanax. 2. Norvasc. 3. Plavix 75 mg daily. ALLERGIES: CODEINE AND PENICILLIN. PHYSICAL EXAMINATION: VITAL SIGNS: Afebrile, pulse 104, respiratory rate 18, BP 120/84, saturating 98 on room air. GENERAL: Alert, pleasant woman, in no distress. NECK: No JVD. LUNGS: Clear to auscultation bilaterally. CARDIOVASCULAR: Regular rate and rhythm. No murmurs appreciated. ABDOMEN: Benign. EXTREMITIES: No edema. LABORATORY DATA: White count 12.7, hematocrit 39.7, platelets 190. Sodium 145, potassium 2.9, down from 3.7, chloride 112, bicarbonate 25.3, BUN 9, creatinine 0.68, glucose 150. Troponin was slightly elevated at 0.35. DIAGNOSTIC DATA: EKG shows sinus rhythm with diffuse T-wave abnormalities. IMPRESSION: 1. Abnormal EKG with slightly elevated troponin. The patient, following a drug overdose, has an abnormal EKG with slight troponin elevation. Though likely nonspecific, I will have her undergo a nuclear stress test given her known coronary disease. She does seem to indicate there was residual coronary artery disease at the time of her stent for which medical therapy was elected. Further recommendations based on the above. Thank you again for the opportunity to participate in this patient's care. Iam Sanders MD [facility]/elías , 02:07 PM , 02:12 PM
[2018-06-15] MEDS: Multivitamin Inj 10 ML, Thiamine Inj 100 MG, Folic Acid Inj 1 MG in Sodium Chlor 0.9% I... IV.SIG SCH (14:55)
[2018-06-15] MEDS ORDERED: Regadenoson Inj 0.4 MG/5 ML Syringe IV.PUSH ONE (15:15)
--- NOTE | 2018-06-15 15:34 | ECG ---
Date Performed: 06/15/2018 Time Performed: 10:32:42 PTAGE: 52 years EKG: Sinus rhythm Marked t wave inversions across precordium and seen in leads 1,2, and AVL compatable with ischemia o r non transmural myocardial infarction Compared to PREVIOUS TRACING , these ST-T changes are new. Clinical correlation is strongly recommend ed Perhaps 1-2mm of ST depression with this marked T wave change PREVIOUS TRACIN06/13/2018 11.56 DOCTOR: Jonh Mckinney Interpretating Date/Time 06/15/2018 15:32:44
--- NOTE | 2018-06-15 17:07 | NM ---
EXAM DATE: 06/15/2018 5:03 PM EST AGE/SEX: 52 years / Female INDICATIONS:Coronary artery disease. Myocardial infarction CLINICAL DATA: This is the patient's initial encounter. Patient reports that signs and symptoms have been present for 2 days and indicates a pain score of 2/10. MEDICAL/SURGICAL HISTORY: Hypertension. Hysterectomy. Tubal ligation. COMPARISON: C, MYOCARDIAL PERF PHARM SPECT, 12/25/2016. . DOSE: 8.2 mCi Tc 99m Myoview at rest 26.4 mCi [id number] at stress 0.4 mg Lexiscan STRESS SYMPTOMS: None. EJECTION FRACTION: 44 % TECHNIQUE: The patient underwent pharmacologic stress with infusion of prescribed dose. Continuous ECG tracing was monitored during stress. Gated SPECT imaging was performed after stress and conventi onal SPECT imaging was performed at rest. The examination was performed on a SPECT/CT scanner, both attenuation and non-corrected datasets were reviewed. FINDINGS: Distribution: The maximum perfused segment at stress is in the anterolateral wall. Perfusion Study: The pattern of perfusion at stress demonstrates a fixed defect in lower anteroapic al wall without any significant ischemia. Gated Study: There are intact wall motion and wall thickening without hypokinetic or dyskinetic segm ents. The ejection fraction is calculated at 44%. RISK CATEGORY: Low (<1% Annual Mortality Rate) CONCLUSION: 1. Ejection fraction calculates slightly low without any significant ischemia. Electronically signed by: Jose Liang MD Board Certified Radiologist 06/15/2018 5:06 PM EST
[2018-06-16] MEDS: Oral Hygiene Kit OROPHARYNG SCH ×8 (00:40→16:20)
[2018-06-16] MEDS: Sod Chloride 0.9% Inj 1,000 ML IV.CONT SCH ×3 (00:55→16:20)
[2018-06-16] MEDS: Chlorhexidine Gluconate 2% 1 Pack (2 Cloths) TOPICAL SCH (03:13)
[2018-06-16] MEDS: Artificial Tears Opth Drops 15 ML Bottle EACH EYE SCH ×3 (05:11→21:43)
[2018-06-16] MEDS: Insulin NovoLOG Aspart Correctional Sugar Inj SQ SCH ×3 (05:11→18:22)
[2018-06-16] MEDS: Senna/Docusate Sodium 8.6/50 MG Tablet PO SCH ×2 (09:39→21:43)
[2018-06-16] MEDS: Chlorhexidine 0.12% Oral Kit 15 ML UDC OROPHARYNG SCH ×4 (09:39→19:14)
[2018-06-16] MEDS: FLUoxetine 20 MG Capsule PO SCH ×2 (09:42→21:43)
[2018-06-16] MEDS: amLODIPine 10 MG Tablet PO SCH (09:42)
[2018-06-16] MEDS: Pantoprazole Inj 40 MG Vial IV.PUSH SCH (10:13)
--- NOTE | 2018-06-16 11:25 | P.PNCA ---
Subjective Interval history: No cardiac sx. Medications and Allergies Active Medications: Active Medications Acetaminophen (Tylenol) 650 mg PO Q6H PRN PRN Reason: Fever >101f Al Hydroxide/Mg Hydroxide (Milk Of Hellen P[place]an) 30 ml PO Q12H PRN PRN Reason: Mild Constipation Albuterol (Albuterol Neb (Prn)) 2.5 mg NEB Q2HR NEB PRN PRN Reason: SHORTNESS OF BREATH/WHEEZING Albuterol (Duoneb Neb ([facility])) 1 ampul NEB Q4HR NEB [facility] Last Admin: 06/16/18 08:37 Dose: Not Given Alprazolam (Xanax) 0.5 mg PO BID PRN PRN Reason: Anxiety Amlodipine Besylate (Norvasc) 10 mg PO DAILY [facility] Last Admin: 06/16/18 09:42 Dose: 10 mg Artificial Tears (Tears Naturale Opth Drops) 1 drop EACH EYE Q8H [facility] Last Admin: 06/16/18 05:11 Dose: Not Given Bisacodyl (Dulcolax Supp) 10 mg RECTAL DAILY PRN PRN Reason: SEVERE CONSITIPATION Carvedilol (Coreg) 3.125 mg PO BID [facility] Last Admin: 06/16/18 09:42 Dose: 3.125 mg Chlorhexidine Gluconate (Peridex 0.12% Oral Kit) 15 ml OROPHARYNG BID@0800, 1999 [facility] Last Admin: 06/16/18 09:39 Dose: Not Given Chlorhexidine Gluconate (Peridex 0.12% Oral Kit) 15 ml OROPHARYNG BID@08, 1999 [facility] Last Admin: 06/16/18 09:39 Dose: Not Given Chlorhexidine Gluconate (Chlorhexidine 2% Cloth) 3 pack TOPICAL DAILY@0400 [facility] Stop: 06/19/18 03:59 Last Admin: 06/16/18 03:13 Dose: Not Given Chlorhexidine Gluconate (Chlorhexidine 2% Cloth) 3 pack TOPICAL DAILY@0400 PRN PRN Reason: Extra cloth needed Stop: 06/19/18 03:59 Clopidogrel Bisulfate (Plavix) 75 mg PO DAILY [facility] Last Admin: 06/16/18 09:42 Dose: 75 mg Dextrose (D50w Vial) 50 ml IV.PUSH UNSCH PRN PRN Reason: PER HYPOGLYCEMIA PROTOCOL Flumazenil (Romazicon Inj) 0.2 mg IV.PUSH Q1M PRN PRN Reason: OVERSEDATION Fluoxetine HCl (Prozac) 40 mg PO BID [facility] Last Admin: 06/16/18 09:42 Dose: 40 mg Glucagon (Glucagon Inj) 1 mg OTHER PRN PRN PRN Reason: for Hypoglycemia Protocol Haloperidol Lactate (Haldol Inj) 1 mg IV.PUSH Q15M PRN PRN Reason: for severe agitation Propofol (Diprivan 1000 Mg/100 Ml Inj) 1,000 mg in 100 mls @ 2.722 mls/hr IV.CONT TITRATE PRN; Protocol PRN Reason: Per Protocol Last Titration: 06/14/18 12:52 Dose: Infused Sodium Chloride (Ns Inj) 1,000 mls @ 84 mls/hr IV.CONT .[id number] [facility] Last Admin: 06/16/18 06:38 Dose: 84 mls/hr Magnesium Sulfate 4 gm/ Sodium (Chloride) 100 mls @ 50 mls/hr IV.SIG UNSCH PRN PRN Reason: For Magnesium 0.9 - 1.1 mg/dL Magnesium Sulfate 2 gm/ Sodium (Chloride) 100 mls @ 50 mls/hr IV.SIG UNSCH PRN PRN Reason: For Magnesium 1.2 - 1.6 mg/dL Potassium Chloride (Kcl 40 Meq Premix Inj) 40 meq in 100 mls @ 25 mls/hr IV.SIG Q2H PRN PRN Reason: For Potassium 2.8 - 3.2 mEq/L Potassium Chloride (Kcl 20 Meq Premix Inj) 20 meq in 100 mls @ 50 mls/hr IV.SIG Q2H PRN PRN Reason: For Potassium 3.3 - 3.5 mEq/L Potassium Chloride (Kcl 40 Meq Premix Inj) 40 meq in 100 mls @ 25 mls/hr IV.SIG UNSCH PRN PRN Reason: For Potassium 3.3 - 3.5 mEq/L Potassium Chloride (Kcl 20 Meq Premix Inj) 20 meq in 100 mls @ 50 mls/hr IV.SIG Q2H PRN PRN Reason: For Potassium 2.8 - 3.2 mEq/L Last Infusion: 06/15/18 14:24 Dose: Infused Potassium Phosphate 30 mmol/ (Sodium Chloride) 260 mls @ 42 mls/hr IV.SIG UNSCH PRN PRN Reason: SEE LABEL COMMENTS Sodium Phosphate 30 mmol/ (Sodium Chloride) 260 mls @ 42 mls/hr IV.SIG UNSCH PRN PRN Reason: For Phosphorus < 2.5 mg/dL Dexmedetomidine HCl 200 mcg/ (Sodium Chloride) 50 mls @ 3.62 mls/hr IV.CONT TITRATE PRN; Protocol PRN Reason: Per Protocol Last Titration: 06/14/18 10:45 Dose: Infused Insulin Aspart (Novolog Insulin [employer] Sugar Inj) 0 unit SQ Q6HR [facility]; Protocol Last Admin: 06/16/18 05:11 Dose: Not Given Lactulose (Lactulose Liq) 30 ml PO DAILY PRN PRN Reason: SEVERE CONSITIPATION Lorazepam (Ativan) 1 mg PO Q4H PRN PRN Reason: for CIWA 8-10 Last Admin: 06/15/18 20:23 Dose: 1 mg Lorazepam (Ativan) 2 mg PO Q2H PRN PRN Reason: for CIWA 11-14 Lorazepam (Ativan Inj) 2 mg IV.PUSH Q2H PRN PRN Reason: for CIWA 11-14 Lorazepam (Ativan Inj) 2 mg IV.PUSH Q1H PRN PRN Reason: for CIWA 15-20 Lorazepam (Ativan Inj) 2 mg IV.PUSH Q15M PRN PRN Reason: for CIWA > 20 Lorazepam (Ativan Inj) 1 mg IV.PUSH Q4H PRN PRN Reason: for CIWA 8-10 Magnesium Oxide (Mag-Ox) 800 mg PO UNSCH PRN PRN Reason: For Magnesium 1.2 - 1.6 mg/dL Miscellaneous Medication () 1 each OROPHARYNG 0000,0400,1200,1600 [facility] Last Admin: 06/16/18 03:14 Dose: Not Given Miscellaneous Medication () 1 each OROPHARYNG 0000,0400,1200,1600 [facility] Last Admin: 06/16/18 03:50 Dose: Not Given Ondansetron HCl (Zofran Inj) 4 mg IV.PUSH Q6H PRN PRN Reason: NAUSEA OR VOMITING Pantoprazole Sodium (Protonix Inj) 40 mg IV.PUSH DAILY [facility] Last Admin: 06/16/18 10:13 Dose: 40 mg Potassium Bicarb/Potassium Chloride (K-Lyte Cl Eff) 50 meq PO UNSCH PRN PRN Reason: For Potassium 3.3 - 3.5 mEq/L Potassium Phosphate (K-Phos Original) 2,000 mg PO Q4H PRN PRN Reason: Phosphorus Less Than 2.5 mg/dL Potassium Phosphate (K-Phos Original) 2,000 mg PO UNSCH PRN PRN Reason: SEE LABEL COMMENTS Senna/Docusate Sodium (Kahti-Colace) 1 tab PO BID [facility] Last Admin: 06/16/18 09:39 Dose: Not Given Sennosides (Senokot) 17.2 mg PO Q12H PRN PRN Reason: Moderate Constipation Sodium Chloride (Ns Flush) 2 ml IV.FLUSH BID [facility] Last Admin: 06/16/18 10:13 Dose: 2 ml Sodium Chloride (Ns Flush) 2 ml IV.FLUSH PRN PRN PRN Reason: FLUSH AFTER USING IV ACCESS Last Admin: 06/15/18 08:56 Dose: 2 ml Allergies Allergy/AdvReac Type Severity Reaction Status Date / Time codeine Allergy Severe Unverified 01/24/17 00:55 penicillin G Allergy Severe Unverified 01/24/17 00:55 *MDRO Multi-Drug Resistant AdvReac Unknown Uncoded 12/24/16 11:52 Organism Home Medications Medication Instructions Recorded Confirmed Type alprazolam [Xanax] 0.5 mg PO BID PRN 06/14/18 06/14/18 History amlodipine 10 mg PO DAILY 06/14/18 06/14/18 History atorvastatin [Lipitor] 80 mg PO DAILY 06/14/18 06/14/18 History carvedilol 3.125 mg PO BID 06/14/18 06/14/18 History clopidogrel [Plavix] 75 mg PO DAILY 06/14/18 06/14/18 History fluoxetine [Prozac] 40 mg PO BID 06/14/18 06/14/18 History Physical Exam Vital signs: Vital Signs 06/15/18 12:00 06/15/18 13:00 06/15/18 15:05 Temperature 98.5 F Pulse Rate 94 H 104 H 94 H Respiratory Rate 32 H 30 H 20 Blood Pressure 133/70 128/84 137/76 Pulse Oximetry 100 98 95 06/15/18 19:05 06/15/18 20:00 06/15/18 23:00 Temperature 97.9 F 98.3 F Pulse Rate 97 H 87 Respiratory Rate 20 20 Blood Pressure 156/89 H 123/60 Pulse Oximetry 98 100 99 06/15/18 23:45 06/16/18 05:43 06/16/18 08:26 Temperature 97.9 F 97.7 F Pulse Rate 82 18 L 87 Respiratory Rate 16 18 22 Blood Pressure 114/54 L 135/71 Pulse Oximetry 98 98 95 06/16/18 08:38 Temperature Pulse Rate Respiratory Rate Blood Pressure Pulse Oximetry 98 Intake & Output 06/15/18 06/16/18 06/16/18 18:59 06:59 18:59 Intake Total 2411.2 / 2411.2 1442 / 1442 Output Total 0 / 0 Balance 2411.2 / 2411.2 1442 / 1442 Weight 58.967 kg 72.5 kg Intake: IV 1911.2 / 1911.2 1000 / 1000 NS Inj 1,000 ML @ 84 mls/hr IV. 1000 / 1000 1000 / 1000 CONT .[id number] [facility] Rx#:[id number] MVI-12 Inj 10 ML Thiamine Inj 511.2 / 511.2 100 MG Folvite Inj 1 MG In NS Inj 500 ML @ 125 mls/hr IV.SIG Q24H [facility] Rx#:[id number] KCl 20 mEq Premix Inj 20 meq In 400 / 400 100 ml @ 50 mls/hr IV.SIG Q2H PRN Rx#:[id number] Oral 500 / 500 442 / 442 Output: Stool 0 / 0 Urine/Stool Mix 0 / 0 Other: # Voids 3 3 Date of Last Bowel Movement 06/15/18 # Bowel Movements 1 1 # Incontinent Bowel Movements 0 Weight On Admission 58.967 kg - Constitutional no acute distress - Routine HEENT Exam Head: Present: normocephalic Eye: Present: EOMI ENT: Present: mucous membranes moist - Routine Neck Exam Absent: JVD - Routine Respiratory Exam Present: CTA bilaterally - Routine Cardiovascular Exam Absent: murmur - Routine Abdominal Exam Present: soft - Urinary Catheter Management Indwelling Urethral Catheter Cath placed during this visit: yes, but has since been removed by the nurse Reason for continuing: Decision to DC catheter Insertion date: 06/13/18 Insertion time: 12:04 Removal date: 06/14/18 Removal time: 14:10 Results 06/15/18 03:53 06/15/18 03:53 Cardiac Enzymes 06/15/18 Range/Units 11:50 Troponin I 0.35 H D (0.02-0.05) ng/mL CBC 06/15/18 Range/Units 03:53 WBC 12.7 H (4.0-11.0) th/mm3 RBC 4.24 (4.00-5.30) mil/mm3 Hgb 13.5 D (11.6-15.3) gm/dL Hct 39.7 (35.0-46.0) % Plt Count 190 (150-450) th/mm3 Neut # (Auto) 7.0 (1.8-7.7) th/mm3 Lymph # (Auto) 4.6 (1.0-4.8) th/mm3 [place] # (Auto) 0.9 (0.0-0.9) th/mm3 Eos # (Auto) 0.1 (0.0-0.4) th/mm3 Baso # (Auto) 0.1 (0.0-0.2) th/mm3 Comprehensive Metabolic Panel 06/15/18 Range/Units 03:53 Sodium 145 (136-145) meq/L Potassium 2.9 L* D (3.5-5.1) meq/L Chloride 112 H (98-107) meq/L Carbon Dioxide 25.3 (21.0-32.0) meq/L BUN 9 (7-18) mg/dL Creatinine 0.68 (0.50-1.00) mg/dL Calcium 7.9 L (8.5-10.1) mg/dL Intake and Output 06/15/18 06/16/18 06/16/18 22:59 06:59 14:59 Intake Total 1011.2 / 1011.2 1442 / 1442 Output Total 0 / 0 Balance 1011.2 / 1011.2 1442 / 1442 Intake: IV 511.2 / 511.2 1000 / 1000 NS Inj 1,000 ML @ 84 mls/hr IV. 1000 / 1000 CONT .[id number] [facility] Rx#:[id number] MVI-12 Inj 10 ML Thiamine Inj 511.2 / 511.2 100 MG Folvite Inj 1 MG In NS Inj 500 ML @ 125 mls/hr IV.SIG Q24H [facility] Rx#:[id number] Oral 500 / 500 442 / 442 Output: Stool 0 / 0 Urine/Stool Mix 0 / 0 Other: # Voids 3 3 Date of Last Bowel Movement 06/15/18 06/15/18 # Bowel Movements 1 1 # Incontinent Bowel Movements 0 Weight 58.967 kg 72.5 kg Weight On Admission 58.967 kg - Imaging and Cardiology Imaging: Impressions Myocardial Perfusion Scan Nuc Med 06/15/18 00:00 CONCLUSION: 1. Ejection fraction calculates slightly low without any significant ischemia. Assessment and Plan - Assessment (1) Elevated troponin Code(s): R74.8 - Abnormal levels of other serum enzymes Status: Acute Plan: s/p non-ischemic ett (2) CAD (coronary artery disease) Code(s): I25.10 - Atherosclerotic heart disease of [place] coronary artery without angina pectoris Status: Acute Plan: on plavix as oupt, can continue, restarted statin, asa, on bb. (3) Abnormal EKG Code(s): R94.31 - Abnormal electrocardiogram [ECG] [EKG] Status: Acute Plan: no ischemia on nuc stress - Plan ok to d/c home from cardiac standpoint
[2018-06-16 11:53] LABS: Calcium 8.7 mg/dL (8.5-10.1); Magnesium 2.1 mg/dL (1.5-2.5); Potassium 3.6 meq/L (3.5-5.1)
[2018-06-16 11:57] LABS: Troponin I 0.23 ng/mL (0.02-0.05)
[2018-06-16 12:05] LABS: Chol/HDL Ratio 8.02 Ratio; HDL Cholesterol 29.9 mg/dL (40.0-60.0)
[2018-06-16 12:10] LABS: CKMB Percent 0.9 % (0.0-4.0); Creatine Kinase MB 3.6 ng/mL (0.5-3.6)
--- NOTE | 2018-06-16 19:04 | P.PNIM ---
Subjective Interval history: 52yo w f admitted to icu after intubation for resp depression and ams due to overdose. Patient was having svt and on cardizem, and had trace elevation of troponins and diffuse T w abnormalities on EKG for which cardiology is evaluating and recommends a stress test in progress. pt seen and examined, she is very pleasant and denies sob, no cp, non dizziness , tolerating diet Physical Exam Vital signs: Last Vital Signs Temp 97.7 F 06/16/18 08:26 Pulse 96 H 06/16/18 18:33 Resp 22 06/16/18 08:26 BP 135/71 06/16/18 08:26 Pulse Ox 98 06/16/18 08:38 Intake & Output 06/14/18 06/15/18 06/16/18 06/17/18 06:59 06:59 06:59 06:59 Intake Total 1900 / 1900 4182.4 / 4182.4 3853.2 / 3853.2 1999 Output Total 1825 / 1825 1950 / 1950 0 / 0 Balance 75 / 75 2232.4 / 2232.4 3853.2 / 3853.2 1999 Weight 72.5 kg 73.8 kg 72.5 kg wdwn obese 52 yo w f aaox2 nad heart s1 s2 reg lungs clear on wrr no dullness abd soft obese nondt pos bs ext no edema no calf tenderness Urinary Catheter Management Indwelling Urethral Catheter: Cath placed during this visit: yes, but has since been removed by the nurse Insertion date: 06/13/18 Insertion time: 12:04 Removal date: 06/14/18 Removal time: 14:10 Results Labs CBC & Chem 7: 06/15/18 03:53 06/16/18 11:19 Labs: Microbiology 06/13/18 21:30 Sputum - Endotracheal Gram Stain - Final 06/13/18 21:30 Sputum - Endotracheal Sputum Culture - Final Heavy growth normal respiratory jasmeet 06/13/18 12:00 Blood - Peripheral Aerobic Blood Culture - Preliminary No growth in 3 days 06/13/18 12:00 Blood - Peripheral Anaerobic Blood Culture - Preliminary No growth in 3 days 06/13/18 12:05 Blood - Peripheral Aerobic Blood Culture - Preliminary No growth in 3 days 06/13/18 12:05 Blood - Peripheral Anaerobic Blood Culture - Preliminary No growth in 3 days Assessment and Plan (1) Elevated troponin: Code(s): R74.8 - Abnormal levels of other serum enzymes Status: Acute (2) CAD (coronary artery disease): Code(s): I25.10 - Atherosclerotic heart disease of [place] coronary artery without angina pectoris Status: Acute (3) Abnormal EKG: Code(s): R94.31 - Abnormal electrocardiogram [ECG] [EKG] Status: Acute Plan ACCIDENTAL POLYSUBSTANCE OD - etoh, benzos, thc, TOXIC ENCEPHALOPATHY AND RESPIRATORY DEPRESSION/FAILURE and ASPIRATION due to od NSTEMI w ekg concerning for ischemia - otherwise asymptomatic - for stress test , cardio consult appreciated, cont bb, asa, ntg, statin, plavix CAD w prior nstemi 2014, post stent to LAD, w occluded RCA w L->R collaterals, nml ef. cont asa plavix HTN cont norvasc DYSLIPIDEMIA - statin DEPRESSION/BIPOLAR DO/ANXIETY - should be counciled re dangers of combining etoh w her chronic benzos. OBESITY BMI 30 outpt fu TOBACCO abuse nicotine addiction - cessation and nicoderm prn wd sx. dvt prophylaxis dispo - home pending cardiac clearance pending stress test Progress Note: Quality VTE Deep Vein Thrombosis/Pulmonary Embolism Present on Admission: No _ (1) CAD (coronary artery disease) Qualifiers: Coronary Disease-Associated Artery/Lesion type: [place] vs. transplanted heart: Associated angina:
[2018-06-17] MEDS: Oral Hygiene Kit OROPHARYNG SCH ×4 (00:57→04:38)
[2018-06-17] MEDS: Insulin NovoLOG Aspart Correctional Sugar Inj SQ SCH ×2 (00:57→06:00)
[2018-06-17] MEDS: Sod Chloride 0.9% Inj 1,000 ML IV.CONT SCH (00:58)
[2018-06-17] MEDS: Chlorhexidine Gluconate 2% 1 Pack (2 Cloths) TOPICAL SCH (04:38)
[2018-06-17] MEDS: Artificial Tears Opth Drops 15 ML Bottle EACH EYE SCH (06:00)
[2018-06-17 08:20] VITALS: BP 147/76; PULSE 76; RESP 20; TEMP 98.1; O2SAT 99
[2018-06-17] MEDS: FLUoxetine 20 MG Capsule PO SCH (09:58)
[2018-06-17] MEDS: amLODIPine 10 MG Tablet PO SCH (09:58)
[2018-06-17] MEDS: Senna/Docusate Sodium 8.6/50 MG Tablet PO SCH (10:09)
[2018-06-17] MEDS: Pantoprazole Inj 40 MG Vial IV.PUSH SCH (10:09)
[2018-06-17] MEDS: Chlorhexidine 0.12% Oral Kit 15 ML UDC OROPHARYNG SCH (10:10)
--- NOTE | 2018-06-17 10:59 | P.DS ---
DS: Providers Date of admission: 06/13/18 13:37 Primary care physician: UNKNOWN Consults: 06/14/18 10:48 Consult to Psychiatry Routine Consulting Provider: Ministerio Jacob Reason for Consultation: Routine consult. Admission under a Dyson act for polysubstance overdose. Extubated today and interactive and able to participate in discussion. Notified:: Office Spoke with:: Farrah Date Notified:: 06/14/18 Time Notified:: 10:50 Ordering Provider: MARYBETH 06/15/18 06:21 Consult to Hospitalist Routine Consulting Provider: Miky Bradford Reason for Consultation: [place] of care in a.m. 06/16 patient missed with polysubstance overdose. Notified:: Service Spoke with:: Bebe Date Notified:: 06/15/18 Time Notified:: 06:32 Ordering Provider: MARYBETH 06/15/18 11:04 Consult to Cardiology Routine Consulting Provider: Iam Sanders Does the patient have a [employer] Shedder who follows them?: No Preferred Law Enforcement Director:: Director Of Strategic Programs Physician Reason for Consultation: [address] changes on monitor confirmed by EKG who denies chest pain. Troponins ordered. Please evaluate. Notified:: Service Spoke with:: KARINA Date Notified:: 06/15/18 Time Notified:: 11:27 Ordering Provider: REJI Brief History from admission: HPI as documented by the admitting physician. This is a 52-year-old female. Admission 06/13/2007. Past medical includes coronary disease, bipolar disorder, hypertension hyperlipidemia. Most recent admission was for chest pain. A negative Lexiscan ejection fraction greater than 69% for chest pain. She is on aspirin and Plavix and lipid- lowering agents at home per records in 2017. Patient presents to [facility] under Dyson act orotracheally intubated after being evaluated by EMS for overdose. This individual was reportedly found unresponsive by family, somnolent and not protecting airway, required intubation 7.5 ET tube by EMS prior to arrival. She had copious emesis noted in her airway during intubation. EMS found bottles of fluoxetine, omeprazole, carvedilol, Joseph Ryan hard alcohol, and marijuana with various copious paraphernalia next to the patient. It is unclear if this was an intentional overdose attempt. Patient on Dyson act report states she killed her dogs? The patient arrived intubated and there are no friends or family members available Patient received 50 mg recommended and was bronched in the ED. Minimal secretions. She does not have a leukocytosis, polycythemia, remainder laboratories essentially normal. CT of the brain is currently pending. She is currently on propofol drip at 20 mg/kg/min. DS: Diagnosis Discharge Diagnosis (1) Elevated troponin: Status: Acute (2) CAD (coronary artery disease): Status: Acute (3) Abnormal EKG: Status: Acute DS: Summary 52-year-old female admitted with acute accidental polysubstance overdose including benzodiazepine, EtOH and marijuana. Evaluation and treatment course detailed below TOXIC ENCEPHALOPATHY AND RESPIRATORY DEPRESSION/FAILURE and ASPIRATION due to od NSTEMI w ekg concerning for ischemia - otherwise asymptomatic - cardio consult appreciated, cont bb, asa, ntg, statin, plavix. Patient underwent nuclear stress test which was negative. CAD w prior nstemi 2014, post stent to LAD, w occluded RCA w L->R collaterals, nml ef. cont asa plavix HTN cont norvasc DYSLIPIDEMIA - statin DEPRESSION/BIPOLAR DO/ANXIETY -Patient was extensively counseled on combining etoh w her chronic benzodiazepine use. OBESITY BMI 30 outpt fu TOBACCO abuse nicotine addiction -patient was extensively counseled on complete cessation. Time Spent with Patient Total time spent providing and/or coordinating discharge services: Quality: VTE Deep Vein Thrombosis/Pulmonary Embolism Present on Admission: No Exam Narrative Exam Narrative: GENERAL: This is a well-nourished, well-developed patient, in no apparent distress. CARDIOVASCULAR: Normal rate and regular rhythm without murmurs, gallops, or rubs. RESPIRATORY: Good respiratory efforts. Breath sounds equal and clear to auscultation bilaterally. GASTROINTESTINAL: Abdomen soft, non-tender, non-distended. Normal active bowel sounds MUSCULOSKELETAL: Extremities without cyanosis, or edema. NEURO: Alert & Oriented x4 to person, place, time, situation. Moves all ext x4 PSYCH: Appropriate mood and affect. Results Labs on day of discharge: Labs from last 24 hours 06/17/18 06/17/18 06/16/18 05:41 00:21 17:54 Sodium Potassium Chloride Carbon Dioxide Anion Gap BUN Creatinine Estimated GFR POC Glucose 109 122 H 88 Random Glucose Calcium Magnesium Total Creatine Kinase CK-MB (CK-2) CK-MB (CK-2) % Troponin I Triglycerides Cholesterol LDL Cholesterol, Calc HDL Cholesterol Cholesterol/HDL Ratio 06/16/18 06/16/18 06/16/18 11:24 11:19 11:19 Sodium 143 Potassium 3.6 Chloride 111 H Carbon Dioxide 27.0 Anion Gap 5 BUN 9 Creatinine 0.71 Estimated GFR 87 L POC Glucose 93 Random Glucose 111 H Calcium 8.7 D Magnesium 2.1 Total Creatine Kinase 389 H CK-MB (CK-2) 3.6 CK-MB (CK-2) % 0.9 Troponin I 0.23 H D Triglycerides 175 H Cholesterol 240 H LDL Cholesterol, Calc 175 H HDL Cholesterol 29.9 L Cholesterol/HDL Ratio 8.02 Preliminary micro results at discharge 06/13/18 12:00 Aerobic Blood Culture - Preliminary Blood - Peripheral No growth in 3 days Anaerobic Blood Culture - Preliminary No growth in 3 days 06/13/18 12:05 Aerobic Blood Culture - Preliminary Blood - Peripheral No growth in 3 days Anaerobic Blood Culture - Preliminary No growth in 3 days Impressions ITS Impressions Chest X-Ray 06/13/18 12:00 CONCLUSION: 1. ETT and NGT in good position. 2. Mild interstitial edema. Head CT 06/13/18 12:00 CONCLUSION: 1. Negative CT Head non contrast. 2. No evidence of acute infarct, hemorrhage, mass or edema. . Myocardial Perfusion Scan Nuc Med 06/15/18 00:00 CONCLUSION: 1. Ejection fraction calculates slightly low without any significant ischemia. Discharge Plan Discharge Disposition Patient Disposition: Discharge Home Discharge Condition Condition: Good Discharge Order Discharge Orders: Discharge Order (Routine); Ordered 06/17/18 Ordered By: Odell Collazo Physicians Team ED Provider: Eve Delatorre Primary Care Provider: MARILYN, Attending Provider: Odell Collazo Other Providers: Ministerio Jacob Joshua A Rxs /Orders / Referrals /Forms Prescriptions: Continue fluoxetine [Prozac] 40 mg Capsule 40 mg PO BID RF: 0 atorvastatin [Lipitor] 80 mg Tablet 80 mg PO DAILY RF: 0 clopidogrel [Plavix] 75 mg Tablet 75 mg PO DAILY RF: 0 carvedilol 3.125 mg Tablet 3.125 mg PO BID RF: 0 alprazolam [Xanax] 0.5 mg Tablet 0.5 mg PO BID PRN (Reason: Anxiety) RF: 0 amlodipine 10 mg Tablet 10 mg PO DAILY RF: 0 Referrals: UNKNOWN, [Primary Care Provider] - See Instructions (Please call [facility] to schedule appt. [address] [facility] [place] [address] ) Discharge Instructions Additional Instructions: Your Health Problems: Goals to Promote Your Health: * To prevent worsening of your condition * To maintain your health at the optimal level Directions to Meet Your Goals: * Take your medications as prescribed * Follow your dietary instruction * Follow activity as directed * Keep your appointments as scheduled * Take your immunizations and boosters as scheduled * If your symptoms worsen call your PCP * If no PCP go to Urgent Care or Emergency Room Smoking is dangerous to your health. Avoid second hand smoke. You may reach the 24-hour crisis hotline for domestic abuse at . Status ED Status: Left Department Discharge Information Discharge Date/Time: 06/17/18 11:28
== END 2018-06-17 11:28 | disposition home or self-care (01) | DRG 981 ==
LOC: NEPE 11:50 → NEDA 13:37 → HIMC 16:20 → N05 06-15 14:13
PROVIDERS: ADMIT Family Medicine; ATTEND Family Medicine
DX: R74.8 Abnormal levels of other serum enzymes; G92 Toxic encephalopathy; F19.94 Other psychoactive substance use, unspecified with psychoactive substance-induced mood disorder; T50.991A Poisoning by other drugs, medicaments and biological substances, accidental (unintentional), initial encounter; E66.9 Obesity, unspecified; I25.2 Old myocardial infarction; E78.5 Hyperlipidemia, unspecified; F17.210 Nicotine dependence, cigarettes, uncomplicated; F12.10 Cannabis abuse, uncomplicated; F10.10 Alcohol abuse, uncomplicated; F31.9 Bipolar disorder, unspecified; F13.10 Sedative, hypnotic or anxiolytic abuse, uncomplicated; Y90.3 Blood alcohol level of 60-79 mg/100 ml; Z62.810 Personal history of physical and sexual abuse in childhood; K21.9 Gastro-esophageal reflux disease without esophagitis; Z68.30 Body mass index [BMI] 30.0-30.9, adult; Z95.5 Presence of coronary angioplasty implant and graft; I10 Essential (primary) hypertension; J69.0 Pneumonitis due to inhalation of food and vomit; J96.01 Acute respiratory failure with hypoxia; D75.1 Secondary polycythemia; I25.10 Atherosclerotic heart disease of native coronary artery without angina pectoris
CPT/HCPCS: 36600; 51702; 70450; 71010; 71045; 78452; 80048; 80053; 80061; 80307; 81001; 82140; 82550; 82552; 82805; 82948; 82962; 83605; 83735; 84100; 84443; 84484; 84703; 85025; 85610; 85730; 87040; 87070; 87205; 87641; 90774; 90784; 92610; 93005; 93017; 94002; 94150; 94640; 94656; 94664; 94665; 96374; 97162; 99291; A9502; C8952; C9113; G0195; J1815; J2250; J2704; J2785; J3411; J3480; J7030; J7040